=== PATIENT | female | born 1965 | race Caucasian/White ===

== ENCOUNTER 2017-03-15 18:13 | Emergency (ER) | payer MEDICARE, OTHER ==
[~2017-03-15] VITALS: Ht 162.6 cm; Wt 104.3 kg
[~2017-03-15 18:13] MED LIST: CYCL10TA2 PO; HYDR-971 PO; LEVO750T31 PO; METR500T PO; ONDA4TAB10 PO; PRED20TA PO
[2017-03-15] MEDS ORDERED: IV NORMAL SALINE 1000ML BAG 1,000 ML IV SCH (18:43)
[2017-03-15] MEDS ORDERED: ONDANSETRON PF 4 MG/2 ML VIAL. IV ONE (18:45)
[2017-03-15 18:56] LABS: BILIRUBIN,URINE NEGATIVE (NEG); GLUCOSE,URINE NEGATIVE (NEG); NITRITE,URINE NEGATIVE (NEG); PH,URINE 6.5; PROTEIN,URINE NEGATIVE (NEG-TRACE); UROBILINOGEN,URINE 0.2 mg/dL (0.2 mg/dL)
[2017-03-15] MEDS ORDERED: CONTRAST GIVEN MC PRN (19:00)
[2017-03-15] MEDS ORDERED: IOHEXOL 240 MG/ML 50ML VIAL. PO ONE (19:00)
[2017-03-15] MEDS ORDERED: IOHEXOL 300 MG/ML 75 ML VIAL IV ONE (19:00)
[2017-03-15 19:16] LABS: BACTERIA,URINE 0 /HPF (0-FEW); RBC,URINE 0 /HPF (0-2); SQUAMOUS EPITHELIAL CELL,UR MOD /LPF; WBC,URINE 0 /HPF (0-4)
[2017-03-15] MEDS: fentaNYL PF VIAL 100 MCG/2 ML VIAL IV PRN ×2 (19:30→19:55)
[2017-03-15 19:35] LABS: BASO # 0.1 x10^3/uL (0.0-0.2); BASO % 1 % (0-3); EOS % 3 % (0-3); HEMATOCRIT 40.3 % (36.0-47.0); HEMOGLOBIN 13.8 g/dL (12.0-15.5); LYMPH # 4.6 x10^3/uL (1.0-4.8); LYMPH % 46 % (24-48); MEAN CORPUSCULAR HEMOGLOBIN 30 pg (25-35); MEAN CORPUSCULAR HGB CONC 34 g/dL (31-37); MEAN CORPUSCULAR VOLUME 87 fL (79-100); MONO % 6 % (0-9); NEUT % 45 % (31-73); PLATELET COUNT 294 x10^3/uL (140-400); RED BLOOD COUNT 4.64 x10^6/uL (3.50-5.40); RED CELL DISTRIBUTION WIDTH 14.3 % (11.5-14.5); WHITE BLOOD COUNT 10.1 x10^3/uL (4.0-11.0)
[2017-03-15 19:42] LABS: INR 1.3 (0.8-1.1); PROTHROMBIN TIME PATIENT 15.1 SEC (11.7-14.0)
[2017-03-15 19:45] LABS: CALCIUM 8.7 mg/dL (8.5-10.1); CREATININE 0.8 mg/dL (0.6-1.0); GFR 75.9; POTASSIUM 3.8 mmol/L (3.5-5.1)
[2017-03-15 19:50] LABS: ALBUMIN 3.3 g/dL (3.4-5.0); ALBUMIN/GLOBULIN RATIO 0.9 (1.0-1.7); TOTAL BILIRUBIN 0.2 mg/dL (0.2-1.0)
[2017-03-15 21:00] VITALS: BP 127/70
--- NOTE | 2017-03-15 21:05 | RAD ---
EXAM: Abdomen and pelvis CT with intravenous contrast. HISTORY: Right lower quadrant pain. TECHNIQUE: Computed tomographic images of the abdomen and pelvis were obtained following the administration of 75 cc Omnipaque 300 intravenous contrast. Multiplanar reformatting was performed. *One or more of the following individualized dose reduction techniques were utilized for this examination: 1. Automated exposure control. 2. Adjustment of the mA and/or kV according to patient size. 3. Use of iterative reconstruction technique. COMPARISON: None. FINDINGS: Evaluation of the lower thorax demonstrates posterior dependent atelectasis. There is no infiltrate or effusion. There is mild pneumobilia likely due to prior sphincterotomy surgery. No focal hepatic lesion is seen. The gallbladder is absent. The pancreas, spleen, adrenal glands and kidneys are unremarkable. There is no appendicitis. There is no abnormal bowel wall thickening or dilatation. There is distal colonic diverticulosis. The bladder is unremarkable. The uterus is surgically absent. No pathologically enlarged lymph node is seen. There is no suspicious osseous lesion. IMPRESSION: 1. Colonic diverticulosis. 2. Pneumobilia. 3. No acute abdominal or pelvic finding. Electronically signed by: Yasmin Leon MD (03/15/2017 9:02 PM)
[2017-03-15] MEDS ORDERED: PROM25TA10 PO (21:32)
--- NOTE | 2017-03-15 21:32 | PHYS DOC ---
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 The pain began 2 days ago, , it was a little better yesterday, Friday, and it was worse today. She had some nausea but she cannot vomit because she's had a fundoplication in the past. No diarrhea or bloody stools. The pain was generalized but now is somewhat worse in the right lower quadrant. 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 It sounds like they ended up doing a transesophageal echo and at that time they started her on warfarin which she is still on. She really cannot Remember if this pain is like that pain that she had 4 years ago or not. Patient also states she had a "blockage" of her bowels in the past, she was admitted for 24-48 hours and it got better, she did not require surgery for that. Note that she was seen here last fall for abdominal pain and it was left lower quadrant, was treated empirically for possible diverticulitis. sHe doesn't remember whether this pain is like that or not. Surgical history. Hysterectomy and she believes they took her left ovary and left or right ovary. Prior to that, BTL. Cholecystectomy, had a retained gallstone and sounds like she had an ERCP after that. She denies having had appendectomy. PCP is at family [facility] Review of Systems Review of Systems Constitutional: Denies fever or chills [] Eyes: Denies change in visual acuity, redness, or eye pain [] HENT: Denies nasal congestion or sore throat [] Respiratory: Denies cough or shortness of breath [] Cardiovascular: Denies chest pain GI: As in history of present illness : Denies dysuria or hematuria [] Musculoskeletal: Denies back pain or joint pain [] Integument: Denies rash or skin lesions [] Neurologic: Denies headache, focal weakness or sensory changes [] Current Medications Current Medications Current Medications Medications (Trade) Dose Ordered Sig/Radha Start Time Stop Time Status Last Admin Dose Admin Fentanyl Citrate (Fentanyl 2ml Vial) 50 mcg PRN Q15MIN PRN 03/15/17 18:45 03/16/17 18:44 03/15/17 19:55 50 MCG Info (Do NOT chart on this entry -- for MONITORING) 1 each PRN DAILY PRN 03/15/17 19:00 03/17/17 18:59 Iohexol (Omnipaque 240 Mg/ml) 30 ml 1X ONCE 03/15/17 19:00 03/15/17 19:01 DC 03/15/17 19:00 30 ML Iohexol (Omnipaque 300 Mg/ml) 75 ml 1X ONCE 03/15/17 19:00 03/15/17 19:01 DC 03/15/17 20:49 75 ML Ondansetron HCl (Zofran) 4 mg 1X ONCE 03/15/17 18:45 03/15/17 18:51 DC 03/15/17 19:28 4 MG Sodium Chloride 1,000 ml @ 1,000 mls/hr Q1H 03/15/17 18:43 03/15/17 19:42 DC 03/15/17 19:22 1,000 MLS/HR Allergies Allergies Allergies Coded Allergies Type Severity Reaction Last Updated Verified No Known Drug Allergies 05/29/15 No Physical Exam Physical Exam Constitutional: Well developed, well nourished, no acute distress, non-toxic appearance. Ambulatory, appears uncomfortable but nontoxic HENT: Normocephalic, atraumatic, bilateral external ears normal, nose normal. [ ] Eyes: conjunctiva normal, no discharge. [] Neck: Normal range of motion, no stridor. [] Cardiovascular:Heart rate regular rhythm, no murmur [] Lungs & Thorax: Bilateral breath sounds clear to auscultation [] Abdomen: Bowel sounds normal, soft, no masses, no pulsatile masses. Abdomen mildly tender to palpation throughout, slightly more tender in the right lower quadrant, still no significant tenderness, no rebound or guarding. Skin: Warm, dry, no erythema, no rash. [] Extremities: No tenderness, no cyanosis, no clubbing, ROM intact, no edema. [] Neurologic: Alert and oriented X 3, normal motor function, normal sensory function, no focal deficits noted. [] Current Patient Data Vital Signs Vital Signs Date Time Temp Pulse Resp B/P (MAP) Pulse Ox O2 Delivery O2 Flow Rate FiO2 03/15/17 20:00 72 18 111/68 (82) 96 Room Air 03/15/17 18:30 98.0 98.0 Lab Values Laboratory Tests Test 03/15/17 18:00 03/15/17 19:20 Urine Collection Type Unknown Urine Color Yellow Urine Clarity Clear Urine pH 6.5 Urine Specific [place] 1.025 Urine Protein Negative mg/dL (NEG-TRACE) Urine Glucose (UA) Negative mg/dL (NEG) Urine Ketones (Stick) Negative mg/dL (NEG) Urine Blood Negative (NEG) Urine Nitrite Negative (NEG) Urine Bilirubin Negative (NEG) Urine Urobilinogen Dipstick 0.2 mg/dL (0.2 mg/dL) Urine Leukocyte Esterase Negative (NEG) Urine RBC 0 /HPF (0-2) Urine WBC 0 /HPF (0-4) Urine Squamous Epithelial Cells Mod /LPF Urine Bacteria 0 /HPF (0-FEW) Urine Mucus Marked /LPF White Blood Count 10.1 x10^3/uL (4.0-11.0) Red Blood Count 4.64 x10^6/uL (3.50-5.40) Hemoglobin 13.8 g/dL (12.0-15.5) Hematocrit 40.3 % (36.0-47.0) Mean Corpuscular Volume 87 fL (79-100) Mean Corpuscular Hemoglobin 30 pg (25-35) Mean Corpuscular Hemoglobin Concent 34 g/dL (31-37) Red Cell Distribution Width 14.3 % (11.5-14.5) Platelet Count 294 x10^3/uL (140-400) Neutrophils (%) (Auto) 45 % (31-73) Lymphocytes (%) (Auto) 46 % (24-48) Monocytes (%) (Auto) 6 % (0-9) Eosinophils (%) (Auto) 3 % (0-3) Basophils (%) (Auto) 1 % (0-3) Neutrophils # (Auto) 4.6 x10^3uL (1.8-7.7) Lymphocytes # (Auto) 4.6 x10^3/uL (1.0-4.8) Monocytes # (Auto) 0.6 x10^3/uL (0.0-1.1) Eosinophils # (Auto) 0.3 x10^3/uL (0.0-0.7) Basophils # (Auto) 0.1 x10^3/uL (0.0-0.2) Prothrombin Time 15.1 SEC (11.7-14.0) H Prothrombin Time INR 1.3 (0.8-1.1) H PTT 30 SEC (24-38) Sodium Level 147 mmol/L (136-145) H Potassium Level 3.8 mmol/L (3.5-5.1) Chloride Level 109 mmol/L (98-107) H Carbon Dioxide Level 29 mmol/L (21-32) Anion Gap 9 (6-14) Blood Urea Nitrogen 15 mg/dL (7-20) Creatinine 0.8 mg/dL (0.6-1.0) Estimated GFR (Cockcroft-Gault) 75.9 BUN/Creatinine Ratio 19 (6-20) Glucose Level 115 mg/dL (70-99) H Calcium Level 8.7 mg/dL (8.5-10.1) Total Bilirubin 0.2 mg/dL (0.2-1.0) Aspartate Amino Transferase (AST) 14 U/L (15-37) L Alanine Aminotransferase (ALT) 21 U/L (14-59) Alkaline Phosphatase 97 U/L (46-116) Total Protein 7.0 g/dL (6.4-8.2) Albumin 3.3 g/dL (3.4-5.0) L Albumin/Globulin Ratio 0.9 (1.0-1.7) L Lipase 228 U/L (73-393) Laboratory Tests 03/15/17 19:20 Laboratory Tests 03/15/17 19:20 EKG EKG [] Radiology/Procedures Radiology/Procedures CT scan of the abdomen and pelvis read by the radiologist. No appendicitis. Diverticulosis but no diverticulitis. No acute abdominal or pelvic findings. [] Course & Med Decision Making Course & Med Decision Making Pertinent Labs and Imaging studies reviewed. (See chart for details) 51-year-old female presents with abdominal pain for now 3 days. I discussed with the patient that we will treat her pain and nausea and get some labs and CT scan and she is agreeable to that plan. Labs unremarkable, CT scan unremarkable. INR is 1.3, subtherapeutic. I discussed this with the patient and she recalls that she forgot her dose of warfarin last night. She has a plan with her primary care physician that she will follow for a subtherapeutic INR. 2119 after results are back, I revisited the patient. She is alert, no acute distress, chatting on her cell phone. The nurses state she has been talking on her phone for quite some time now in no acute distress. Discussed results, see instructions for plan. [] Dragon Disclaimer Dragon Disclaimer This electronic medical record was generated, in whole or in part, using a voice recognition dictation system. Departure Departure Impression: Primary Impression: Abdominal pain Disposition: HOME, SELF-CARE Condition: STABLE Referrals: UNKNOWN PCP NAME (PCP) Patient Instructions: Abdominal Pain (Nonspecific) Additional Instructions: As we discussed, for 1-2 days, eat and drink very small amounts of bland foods and clear liquids. No fast food, nothing spicy or greasy. If worse, return to emergency. Check with your primary care doctor about your INR, 1.3. Scripts Promethazine Hcl (PROMETHAZINE HCL) 25 Mg Tablet 1 TAB PO PRN Q6HRS, #20 TAB Prov: MARLEN FERREIRA MD 03/15/17 MARLEN FERREIRA MD March 15, 2017 21:32
== END 2017-03-15 21:35 | disposition home or self-care (01) ==
LOC: ER 18:19
DX: R10.31 Right lower quadrant pain (principal); R11.0 Nausea; E78.00 Pure hypercholesterolemia, unspecified; Z90.710 Acquired absence of both cervix and uterus; Z90.49 Acquired absence of other specified parts of digestive tract; Z98.890 Other specified postprocedural states
CPT/HCPCS: 36415; 74177; 80053; 81001; 83690; 85027; 85610; 85730; 96361; 96374; 96375; 99285; J2405; J3010; J7030; Q9966; Q9967

== ENCOUNTER 2017-04-26 23:31 | Emergency (ER) | payer MEDICARE, OTHER ==
[~2017-04-26] VITALS: Ht 162.6 cm; Wt 106.6 kg
[~2017-04-26 23:31] MED LIST changes: +PROM25TA10 PO
[2017-04-27 01:03] LABS: BASO # 0.1 x10^3/uL (0.0-0.2); BASO % 1 % (0-3); EOS % 3 % (0-3); HEMATOCRIT 38.9 % (36.0-47.0); LYMPH # 4.6 x10^3/uL (1.0-4.8); LYMPH % 45 % (24-48); MEAN CORPUSCULAR HEMOGLOBIN 30 pg (25-35); MEAN CORPUSCULAR HGB CONC 33 g/dL (31-37); MEAN CORPUSCULAR VOLUME 89 fL (79-100); MONO % 6 % (0-9); NEUT % 46 % (31-73); PLATELET COUNT 256 x10^3/uL (140-400); RED BLOOD COUNT 4.35 x10^6/uL (3.50-5.40); RED CELL DISTRIBUTION WIDTH 13.6 % (11.5-14.5); WHITE BLOOD COUNT 10.2 x10^3/uL (4.0-11.0)
[2017-04-27 01:05] LABS: BILIRUBIN,URINE NEGATIVE (NEG); GLUCOSE,URINE NEGATIVE (NEG); NITRITE,URINE NEGATIVE (NEG); PH,URINE 5.5; PROTEIN,URINE NEGATIVE (NEG-TRACE); UROBILINOGEN,URINE 0.2 mg/dL (0.2 mg/dL)
--- NOTE | 2017-04-27 01:12 | PHYS DOC ---
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 Patient states that the pain has been present along her right side during the past 3 days. Patient states that her pain is sharp and rates it 10 out of 10 currently. 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 Patient states that she is currently on Coumadin therapy and her INR has been subtherapeutic at last check. Patient denies any fevers. Patient has not taken any medications to help with her symptoms at this time. Patient denies any chest pain, shortness of breath, or urinary symptoms. The pain remains in the right lower quadrant and does not radiate. Review of Systems Review of Systems Constitutional: Denies fever or chills [] Eyes: Denies change in visual acuity, redness, or eye pain [] HENT: Denies nasal congestion or sore throat [] Respiratory: Denies cough or shortness of breath [] Cardiovascular: Denies chest pain or edema [] GI: Abdominal pain, nausea, vomiting, diarrhea, denies bloody stools [] : Denies dysuria or hematuria [] Musculoskeletal: Denies back pain or joint pain [] Integument: Denies rash or skin lesions [] Neurologic: Denies headache, focal weakness or sensory changes [] Current Medications Current Medications Current Medications Medications (Trade) Dose Ordered Sig/Radha Start Time Stop Time Status Last Admin Dose Admin Fentanyl Citrate (Fentanyl 2ml Vial) 50 mcg PRN Q15MIN PRN 04/27/17 01:15 04/27/17 03:38 DC 04/27/17 02:00 50 MCG Info (Do NOT chart on this entry -- for MONITORING) 1 each PRN DAILY PRN 04/27/17 01:45 04/27/17 03:38 DC Iohexol (Omnipaque 350 Mg/ml) 90 ml 1X ONCE 04/27/17 02:00 04/27/17 02:01 DC 04/27/17 02:07 75 ML Ondansetron HCl (Zofran) 4 mg 1X ONCE 04/27/17 01:30 04/27/17 01:31 DC 04/27/17 01:34 4 MG Sodium Chloride 1,000 ml @ 1,000 mls/hr Q1H 04/27/17 01:30 04/27/17 02:29 DC 04/27/17 01:34 1,000 MLS/HR Allergies Allergies Allergies Coded Allergies Type Severity Reaction Last Updated Verified No Known Drug Allergies 05/29/15 No Physical Exam Physical Exam Constitutional: Alert, afebrile, appears in moderate discomfort. [] HENT: Normocephalic, atraumatic, bilateral external ears normal, oropharynx moist, no oral exudates, nose normal. [] Eyes: PERRLA, EOMI, conjunctiva normal, no discharge. [] Neck: Normal range of motion, no tenderness, supple, no stridor. [] Cardiovascular:Heart rate regular rhythm, no murmur [] Lungs & Thorax: Bilateral breath sounds clear to auscultation [] Abdomen: Bowel sounds normal, soft, mild tenderness in the right lower quadrant , no guarding or rebound tenderness, no masses, no pulsatile masses. [] Skin: Warm, dry, no erythema, no rash. [] Back: No tenderness, no CVA tenderness. [] Extremities: No tenderness, no cyanosis, no clubbing, ROM intact, no edema. [] Neurologic: Alert and oriented X 3, normal motor function, normal sensory function, no focal deficits noted. [] Current Patient Data Vital Signs Vital Signs Date Time Temp Pulse Resp B/P (MAP) Pulse Ox O2 Delivery O2 Flow Rate FiO2 04/27/17 03:30 66 119/62 (81) 96 Room Air 04/27/17 00:00 98.8 18 98.8 Lab Values Laboratory Tests Test 04/27/17 00:01 04/27/17 00:35 Urine Collection Type Unknown Urine Color Yellow Urine Clarity Clear Urine pH 5.5 Urine Specific [place] >=1.030 Urine Protein Negative mg/dL (NEG-TRACE) Urine Glucose (UA) Negative mg/dL (NEG) Urine Ketones (Stick) Negative mg/dL (NEG) Urine Blood Negative (NEG) Urine Nitrite Negative (NEG) Urine Bilirubin Negative (NEG) Urine Urobilinogen Dipstick 0.2 mg/dL (0.2 mg/dL) Urine Leukocyte Esterase Negative (NEG) Urine RBC Occ /HPF (0-2) Urine WBC 5-10 /HPF (0-4) Urine Squamous Epithelial Cells Mod /LPF Urine Bacteria Many /HPF (0-FEW) Urine Mucus Mod /LPF White Blood Count 10.2 x10^3/uL (4.0-11.0) Red Blood Count 4.35 x10^6/uL (3.50-5.40) Hemoglobin 13.0 g/dL (12.0-15.5) Hematocrit 38.9 % (36.0-47.0) Mean Corpuscular Volume 89 fL (79-100) Mean Corpuscular Hemoglobin 30 pg (25-35) Mean Corpuscular Hemoglobin Concent 33 g/dL (31-37) Red Cell Distribution Width 13.6 % (11.5-14.5) Platelet Count 256 x10^3/uL (140-400) Neutrophils (%) (Auto) 46 % (31-73) Lymphocytes (%) (Auto) 45 % (24-48) Monocytes (%) (Auto) 6 % (0-9) Eosinophils (%) (Auto) 3 % (0-3) Basophils (%) (Auto) 1 % (0-3) Neutrophils # (Auto) 4.6 x10^3uL (1.8-7.7) Lymphocytes # (Auto) 4.6 x10^3/uL (1.0-4.8) Monocytes # (Auto) 0.7 x10^3/uL (0.0-1.1) Eosinophils # (Auto) 0.3 x10^3/uL (0.0-0.7) Basophils # (Auto) 0.1 x10^3/uL (0.0-0.2) Prothrombin Time 17.5 SEC (11.7-14.0) H Prothrombin Time INR 1.5 (0.8-1.1) H PTT 36 SEC (24-38) Sodium Level 147 mmol/L (136-145) H Potassium Level 3.8 mmol/L (3.5-5.1) Chloride Level 111 mmol/L (98-107) H Carbon Dioxide Level 28 mmol/L (21-32) Anion Gap 8 (6-14) Blood Urea Nitrogen 18 mg/dL (7-20) Creatinine 1.2 mg/dL (0.6-1.0) H Estimated GFR (Cockcroft-Gault) 47.6 Glucose Level 114 mg/dL (70-99) H Calcium Level 8.3 mg/dL (8.5-10.1) L Total Bilirubin 0.1 mg/dL (0.2-1.0) L Direct Bilirubin < 0.1 mg/dL (0.0-0.2) Aspartate Amino Transferase (AST) 14 U/L (15-37) L Alanine Aminotransferase (ALT) 22 U/L (14-59) Alkaline Phosphatase 87 U/L (46-116) Troponin I Quantitative < 0.017 ng/mL (0.000-0.055) Total Protein 6.6 g/dL (6.4-8.2) Albumin 3.4 g/dL (3.4-5.0) Lipase 221 U/L (73-393) Laboratory Tests 04/27/17 00:35 Laboratory Tests 04/27/17 00:35 EKG EKG Not performed [] Radiology/Procedures Radiology/Procedures [facility] [address] [place] [address] IMAGING REPORT Signed PATIENT: LU NO ACCOUNT: [id number] : 1965 LOCATION: ER AGE: 51 SEX: F EXAM STATUS: REG ER ORD. PHYSICIAN: HEATHER RAGSDALE MD REASON: abdominal pain, reported history of aortic thrombosis PROCEDURE: CT ANGIO CHEST ABD PELVIS INDICATION: rlq pain; hx aortic thrombosis COMPARISON: March 15, 2017 TECHNIQUE: Axial CT images were obtained through the chest, abdomen and pelvis with intravenous contrast. Three-dimensional images process per angiogram protocol. One or more of the following individualized dose reduction techniques were utilized for this examination: 1. Automated exposure control; 2. Adjustment of the mA and/or kV according to patient size; 3. Use of iterative reconstruction technique. FINDINGS: Chest: Mild regions of lucency within the lung parenchyma. Could be from small foci of air trapping. No evidence of pneumothorax. No definite focal airspace consolidation. Coronary artery calcific atherosclerosis. Small hiatal hernia. Portions of the ascending aorta are obscured by motion but no definite aneurysm or dissection seen. ABDOMEN: Calcific atherosclerosis is identified without definite aneurysm or dissection of abdominal aorta. No intrahepatic bile duct dilation. Postcholecystectomy with mild pneumobilia. No peripancreatic edema. Subcentimeter low-attenuation splenic lesion suspected. No hydronephrosis. Bladder is largely decompressed. Colonic diverticulosis. The appendix does not appear grossly inflamed. Bladder partially distended. No dilated loops of bowel to suggest obstruction. Degenerative changes spine. IMPRESSION: 1. No evidence of aortic dissection or thrombosis. There is calcific atherosclerosis. 2. No evidence of bowel obstruction or appendicitis. 3. Small hiatal hernia. 4. Postcholecystectomy changes with mild pneumobilia. Electronically signed by: Tamara No MD (04/27/2017 2:51 AM) [facility] DICTATED and SIGNED BY: TAMARA NO MD DATE: 04/27/17 0227 CC: HEATHER RAGSDALE MD; UNKNOWN PCP NAME ~ [] Course & Med Decision Making Course & Med Decision Making Pertinent Labs and Imaging studies reviewed. (See chart for details) The patient's CT scan shows no evidence of acute surgical process nor evidence of acute thrombosis or dissection in the aorta. The patient was treated with IV fluids and IV pain medicine with improvement in symptoms. The patient was discharged with [place] and Zofran and advised follow-up in 2-3 days a primary doctor. Advised return emergency department for any worsening symptoms. Patient voiced understanding and in agreement with treatment plan. Dragon Disclaimer Dragon Disclaimer This electronic medical record was generated, in whole or in part, using a voice recognition dictation system. Departure Departure Impression: Primary Impression: Abdominal pain Additional Impressions: Nausea and vomiting Diarrhea Disposition: 01 HOME, SELF-CARE Condition: IMPROVED Referrals: UNKNOWN PCP NAME (PCP) Patient Instructions: Abdominal Pain (Nonspecific), Diarrhea, Nausea and Vomiting Additional Instructions: Follow-up he primary doctor in the next 2 days for reevaluation. Return to emergency department for any worsening symptoms. Scripts Ondansetron (ZOFRAN ODT) 4 Mg Tab.rapdis 1 TAB SL Q8HRS Y for NAUSEA/VOMITING, #15 TAB Prov: HEATHER RAGSDALE MD 04/27/17 Hydrocodone/Apap 5-325 (NORCO 5-325 TABLET) 1 Each Tablet 1-2 TAB PO Q4-6HRS Y for PAIN, #20 TAB Prov: HEATHER RAGSDALE MD 04/27/17 Problem Qualifiers Primary Impression: Abdominal pain Abdominal location: lower abdomen, unspecified Qualified Codes: R10.30 - Lower abdominal pain, unspecified Additional Impressions: Nausea and vomiting Vomiting type: unspecified Vomiting Intractability: non-intractable Qualified Codes: R11.2 - Nausea with vomiting, unspecified Diarrhea Diarrhea type: presumed infectious Qualified Codes: A09 - Infectious gastroenteritis and colitis, unspecified HEATHER RAGSDALE MD Apr 27, 2017 01:12
[2017-04-27 01:17] LABS: CALCIUM 8.3 mg/dL (8.5-10.1); CREATININE 1.2 mg/dL (0.6-1.0); GFR 47.6; POTASSIUM 3.8 mmol/L (3.5-5.1)
[2017-04-27 01:22] LABS: BACTERIA,URINE MANY /HPF (0-FEW); RBC,URINE OCC /HPF (0-2); SQUAMOUS EPITHELIAL CELL,UR MOD /LPF
[2017-04-27] MEDS ORDERED: IV NORMAL SALINE 1000ML BAG 1,000 ML IV SCH (01:30)
[2017-04-27] MEDS ORDERED: ONDANSETRON PF 4 MG/2 ML VIAL. IV ONE (01:30)
[2017-04-27] MEDS: fentaNYL PF VIAL 100 MCG/2 ML VIAL IV PRN ×2 (01:33→02:00)
[2017-04-27 01:36] LABS: INR 1.5 (0.8-1.1); PROTHROMBIN TIME PATIENT 17.5 SEC (11.7-14.0)
[2017-04-27 01:39] LABS: ALBUMIN 3.4 g/dL (3.4-5.0); ALK PHOS 87 U/L (46-116); ALT (SGPT) 22 U/L (14-59); AST (SGOT) 14 U/L (15-37); DIRECT BILIRUBIN < 0.1 mg/dL (0.0-0.2); TOTAL BILIRUBIN 0.1 mg/dL (0.2-1.0); TOTAL PROTEIN 6.6 g/dL (6.4-8.2)
[2017-04-27] MEDS ORDERED: CONTRAST GIVEN MC PRN (01:45)
[2017-04-27] MEDS ORDERED: IOHEXOL 350 MG/ML 100 ML VIAL. IV ONE (02:00)
--- NOTE | 2017-04-27 02:54 | RAD ---
INDICATION: rlq pain; hx aortic thrombosis COMPARISON: March 15, 2017 TECHNIQUE: Axial CT images were obtained through the chest, abdomen and pelvis with intravenous contrast. Three-dimensional images process per angiogram protocol. One or more of the following individualized dose reduction techniques were utilized for this examination: 1. Automated exposure control; 2. Adjustment of the mA and/or kV according to patient size; 3. Use of iterative reconstruction technique. FINDINGS: Chest: Mild regions of lucency within the lung parenchyma. Could be from small foci of air trapping. No evidence of pneumothorax. No definite focal airspace consolidation. Coronary artery calcific atherosclerosis. Small hiatal hernia. Portions of the ascending aorta are obscured by motion but no definite aneurysm or dissection seen. ABDOMEN: Calcific atherosclerosis is identified without definite aneurysm or dissection of abdominal aorta. No intrahepatic bile duct dilation. Postcholecystectomy with mild pneumobilia. No peripancreatic edema. Subcentimeter low-attenuation splenic lesion suspected. No hydronephrosis. Bladder is largely decompressed. Colonic diverticulosis. The appendix does not appear grossly inflamed. Bladder partially distended. No dilated loops of bowel to suggest obstruction. Degenerative changes spine. IMPRESSION: 1. No evidence of aortic dissection or thrombosis. There is calcific atherosclerosis. 2. No evidence of bowel obstruction or appendicitis. 3. Small hiatal hernia. 4. Postcholecystectomy changes with mild pneumobilia. Electronically signed by: Froilan Rooney MD (04/27/2017 2:51 AM) [facility]
[2017-04-27] MEDS ORDERED: HYDR-971 PO (03:25)
[2017-04-27] MEDS ORDERED: ONDA4TAB10 SL (03:25)
[2017-04-27 03:30] VITALS: BP 119/62
== END 2017-04-27 03:37 | disposition home or self-care (01) ==
LOC: ER 23:31
DX: R10.31 Right lower quadrant pain (principal); R11.2 Nausea with vomiting, unspecified; R19.7 Diarrhea, unspecified; E78.00 Pure hypercholesterolemia, unspecified; K21.9 Gastro-esophageal reflux disease without esophagitis; F32.9 Major depressive disorder, single episode, unspecified; F41.9 Anxiety disorder, unspecified; Z90.49 Acquired absence of other specified parts of digestive tract; Z90.710 Acquired absence of both cervix and uterus; Z79.01 Long term (current) use of anticoagulants; I10 Essential (primary) hypertension
CPT/HCPCS: 36415; 71275; 74174; 80048; 80076; 81001; 83690; 84484; 85027; 85610; 85730; 87086; 96361; 96374; 96375; 99285; J2405; J3010; J7030; Q9967

== ENCOUNTER 2017-07-10 14:05 | Emergency (ER) | payer MEDICARE, OTHER ==
[~2017-07-10] VITALS: Ht 162.6 cm; Wt 106.6 kg
[~2017-07-10 14:05] MED LIST changes: +ONDA4TAB10 SL
--- NOTE | 2017-07-10 14:47 | RAD ---
CT of the head without contrast, 07/10/2017: History: Severe headache Comparison is made to a study from 09/15/2016. The ventricles are within normal limits in size. There is no shift of the midline structures. There is no evidence of acute intracranial hemorrhage or mass effect. IMPRESSION: No acute intracranial abnormality is detected. PQRS Compliance Statement: One or more of the following individualized dose reduction techniques were utilized for this examination: 1. Automated exposure control 2. Adjustment of the mA and/or kV according to patient size 3. Use of iterative reconstruction technique
--- NOTE | 2017-07-10 15:20 | PHYS DOC ---
Past Medical History Past Medical History: Anxiety, Depression, High Cholesterol Additional Past Medical Histor: "BLOOD CLOTS" Past Surgical History: Cholecystectomy, Hysterectomy, Other Additional Past Surgical Histo: ACID REFLUX SURGERY Past Surgical History The patient reports hysterectomy, fundoplication, bilateral tubal ligation, and cholecystectomy Alcohol Use: Occasionally Drug Use: None Adult General Chief Complaint Chief Complaint: HEADACHE HPI HPI Patient is a 51 year old female who presents emergency Department with a chief complaint of severe headache. The patient she has a history of migraine headaches. Patient presented to the first one this year for her. The patient wasbeen ongoing for 6 days. The patient reports that she's been having poor eating and poor sleep secondary to raising her autistic grandchild who is nonverbal and because her son was in a rollover MVA is on life support at [facility]. The patient reports she's been unable to get her INR done as she normally would. The patient is uncertain when her INR is at this time. 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 The patient reports right parietal and right temporal headache feels like a stabbing type pain. Patient reports typically her headaches are a throbbing type pain. She denies any neck tenderness or pain with neck flexion. [] Review of Systems Review of Systems Constitutional: Denies fever or chills [] Eyes: Denies change in visual acuity, redness, or eye pain [] HENT: Denies nasal congestion or sore throat [] Respiratory: Denies cough or shortness of breath [] Cardiovascular: No additional information not addressed in HPI [] GI: Denies abdominal pain, omiting, bloody stools or diarrhea [] : Denies dysuria or hematuria [] Musculoskeletal: Denies back pain or joint pain [] Integument: Denies rash or skin lesions [] Neurologic: Denies focal weakness or sensory changes [] Endocrine: Denies polyuria or polydipsia The patient complains of nausea and headache at this time.[] Current Medications Current Medications Current Medications Medications (Trade) Dose Ordered Sig/Radha Start Time Stop Time Status Last Admin Dose Admin Diphenhydramine HCl (Benadryl) 25 mg 1X ONCE 07/10/17 15:45 07/10/17 16:44 DC 9/21/17 16:10 25 MG Prochlorperazine Edisylate (Compazine) 10 mg 1X ONCE 07/10/17 15:45 07/10/17 16:44 DC 07/10/17 16:10 10 MG Patient reports that her home meds include Tylenol and Coumadin and diazepam Allergies Allergies Allergies Coded Allergies Type Severity Reaction Last Updated Verified No Known Drug Allergies 05/29/15 No Physical Exam Physical Exam Constitutional: Well developed, well nourished, no acute distress, non-toxic appearance. [] HENT: Normocephalic, atraumatic, bilateral external ears normal, oropharynx moist, no oral exudates, nose normal. [] Eyes: PERRLA, EOMI, conjunctiva normal, no discharge. [] Neck: Normal range of motion, no tenderness, supple, no stridor, no meningismus. [] Cardiovascular:Heart rate regular rhythm, no murmur [] Lungs & Thorax: Bilateral breath sounds clear to auscultation [] Abdomen: Bowel sounds normal, soft, no tenderness, no masses, no pulsatile masses. [] Skin: Warm, dry, no erythema, no rash. [] Back: No tenderness, no CVA tenderness. [] Extremities: No tenderness, no cyanosis, no clubbing, ROM intact, no edema. [] Neurologic: Alert and oriented X 3, normal motor function, normal sensory function, no focal deficits noted. [] Psychologic: Affect normal, judgement normal, mood normal. [] Current Patient Data Vital Signs Vital Signs Date Time Temp Pulse Resp B/P (MAP) Pulse Ox O2 Delivery O2 Flow Rate FiO2 07/10/17 17:00 68 23 111/69 (83) 98 Room Air 07/10/17 14:56 98.0 98.0 Lab Values Laboratory Tests Test 07/10/17 15:30 07/10/17 15:55 POC Urine HCG, Qualitative Hcg negative (Negative) White Blood Count 9.8 x10^3/uL (4.0-11.0) Red Blood Count 4.43 x10^6/uL (3.50-5.40) Hemoglobin 13.2 g/dL (12.0-15.5) Hematocrit 39.9 % (36.0-47.0) Mean Corpuscular Volume 90 fL (79-100) Mean Corpuscular Hemoglobin 30 pg (25-35) Mean Corpuscular Hemoglobin Concent 33 g/dL (31-37) Red Cell Distribution Width 14.2 % (11.5-14.5) Platelet Count 262 x10^3/uL (140-400) Neutrophils (%) (Auto) 46 % (31-73) Lymphocytes (%) (Auto) 45 % (24-48) Monocytes (%) (Auto) 6 % (0-9) Eosinophils (%) (Auto) 3 % (0-3) Basophils (%) (Auto) 1 % (0-3) Neutrophils # (Auto) 4.5 x10^3uL (1.8-7.7) Lymphocytes # (Auto) 4.4 x10^3/uL (1.0-4.8) Monocytes # (Auto) 0.6 x10^3/uL (0.0-1.1) Eosinophils # (Auto) 0.3 x10^3/uL (0.0-0.7) Basophils # (Auto) 0.1 x10^3/uL (0.0-0.2) Prothrombin Time 17.5 SEC (11.7-14.0) H Prothrombin Time INR 1.5 (0.8-1.1) H PTT 35 SEC (24-38) Sodium Level 143 mmol/L (136-145) Potassium Level 3.9 mmol/L (3.5-5.1) Chloride Level 106 mmol/L (98-107) Carbon Dioxide Level 27 mmol/L (21-32) Anion Gap 10 (6-14) Blood Urea Nitrogen 12 mg/dL (7-20) Creatinine 0.8 mg/dL (0.6-1.0) Estimated GFR (Cockcroft-Gault) 75.9 BUN/Creatinine Ratio 15 (6-20) Glucose Level 91 mg/dL (70-99) Calcium Level 9.0 mg/dL (8.5-10.1) Total Bilirubin 0.2 mg/dL (0.2-1.0) Aspartate Amino Transferase (AST) 19 U/L (15-37) Alanine Aminotransferase (ALT) 25 U/L (14-59) Alkaline Phosphatase 96 U/L (46-116) Total Protein 7.3 g/dL (6.4-8.2) Albumin 3.4 g/dL (3.4-5.0) Albumin/Globulin Ratio 0.9 (1.0-1.7) L Laboratory Tests 07/10/17 15:55 Laboratory Tests 07/10/17 15:55 EKG EKG [] Radiology/Procedures Radiology/Procedures [] PATIENT: LU NO ACCOUNT: [id number] : 1965 LOCATION: ER AGE: 51 SEX: F EXAM STATUS: REG ER ORD. PHYSICIAN: GREG SHEA APRN REASON: headahce PROCEDURE: CT HEAD WO CONTRAST CT of the head without contrast, 07/10/2017: History: Severe headache Comparison is made to a study from 09/15/2016. The ventricles are within normal limits in size. There is no shift of the midline structures. There is no evidence of acute intracranial hemorrhage or mass effect. IMPRESSION: No acute intracranial abnormality is detected. PQRS Compliance Statement: One or more of the following individualized dose reduction techniques were utilized for this examination: 1. Automated exposure control 2. Adjustment of the mA and/or kV according to patient size 3. Use of iterative reconstruction technique DICTATED and SIGNED BY: SERENA LANDEROS MD DATE: 07/10/17 1443 CC: GREG SHEA APRN; NON,STAFF; UNKNOWN PCP NAME ~ Course & Med Decision Making Course & Med Decision Making Pertinent Labs and Imaging studies reviewed. (See chart for details) I rechecked the patient and at 5:46 PM. I had to arouse the patient from sleep. I asked the patient with her headache was improved. Patient states that her headache is resolved. The patient was eager to be discharged home so that she can get some rest. This patient need for close outpatient follow-up she was understanding and agree with the plan.[] Dragon Disclaimer Dragon Disclaimer This electronic medical record was generated, in whole or in part, using a voice recognition dictation system. Departure Departure Referrals: UNKNOWN PCP NAME (PCP) RADHA HRAO MD Jul 10, 2017 15:20
[2017-07-10] MEDS ORDERED: PROCHLORPERAZINE 10 MG/2 ML VIAL. IV ONE (15:45)
[2017-07-10] MEDS ORDERED: diphenhydrAMINE 50 MG/ML VIAL IVP ONE (15:45)
[2017-07-10 16:06] LABS: BASO # 0.1 x10^3/uL (0.0-0.2); BASO % 1 % (0-3); EOS % 3 % (0-3); HEMATOCRIT 39.9 % (36.0-47.0); HEMOGLOBIN 13.2 g/dL (12.0-15.5); LYMPH # 4.4 x10^3/uL (1.0-4.8); LYMPH % 45 % (24-48); MEAN CORPUSCULAR HEMOGLOBIN 30 pg (25-35); MEAN CORPUSCULAR HGB CONC 33 g/dL (31-37); MEAN CORPUSCULAR VOLUME 90 fL (79-100); MONO % 6 % (0-9); NEUT % 46 % (31-73); PLATELET COUNT 262 x10^3/uL (140-400); RED BLOOD COUNT 4.43 x10^6/uL (3.50-5.40); RED CELL DISTRIBUTION WIDTH 14.2 % (11.5-14.5); WHITE BLOOD COUNT 9.8 x10^3/uL (4.0-11.0)
[2017-07-10 16:15] LABS: INR 1.5 (0.8-1.1); PROTHROMBIN TIME PATIENT 17.5 SEC (11.7-14.0)
[2017-07-10 16:16] LABS: CREATININE 0.8 mg/dL (0.6-1.0); GFR 75.9; POTASSIUM 3.9 mmol/L (3.5-5.1)
[2017-07-10 16:22] LABS: ALBUMIN 3.4 g/dL (3.4-5.0); ALBUMIN/GLOBULIN RATIO 0.9 (1.0-1.7); TOTAL BILIRUBIN 0.2 mg/dL (0.2-1.0); TOTAL PROTEIN 7.3 g/dL (6.4-8.2)
[2017-07-10 18:00] VITALS: BP 123/68
== END 2017-07-10 18:25 | disposition home or self-care (01) ==
LOC: ER 14:05
DX: G43.909 Migraine, unspecified, not intractable, without status migrainosus (principal); F41.9 Anxiety disorder, unspecified; F32.9 Major depressive disorder, single episode, unspecified; E78.00 Pure hypercholesterolemia, unspecified
CPT/HCPCS: 36415; 70450; 80053; 81025; 85025; 85610; 85730; 96374; 96375; 99285; J0780; J1200

== ENCOUNTER 2017-09-02 12:02 | Inpatient (IN) | payer MEDICARE, OTHER ==
[~2017-09-02] VITALS: Ht 162.6 cm; Wt 105.3 kg
[2017-09-02] MEDS ORDERED: HYDROmorphone 2 MG/ML VIAL IV ONE ×2 (12:45→14:15)
[2017-09-02] MEDS ORDERED: IV NORMAL SALINE 1000ML BAG 1,000 ML IV ONE (12:45)
[2017-09-02] MEDS ORDERED: ONDANSETRON PF 4 MG/2 ML VIAL. IV ONE (12:45)
--- NOTE | 2017-09-02 12:49 | PHYS DOC ---
Past Medical History Past Medical History: Anxiety, Depression, High Cholesterol Additional Past Medical Histor: "BLOOD CLOTS" Past Surgical History: Cholecystectomy, Hysterectomy, Other Additional Past Surgical Histo: ACID REFLUX SURGERY Alcohol Use: Occasionally Drug Use: None Adult General Chief Complaint Chief Complaint: ABDOMINAL PAIN HPI HPI Patient is a 52 year old female who presents with one-day history of right- sided abdominal pain that intermittently crosses across her abdomen no nausea vomiting; reports diarrhea not bloody no melena; denies fever chills dysuria frequency or flank pain. Past abdominal surgery includes Felicity fundoplication, cholecystectomy and abdominal hysterectomy no appendectomy. 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 Denies atrial fibrillation or diabetes or coronary artery disease or COPD. Review of Systems Review of Systems Constitutional: Denies fever or chills [] Eyes: Denies change in visual acuity, redness, or eye pain [] HENT: Denies nasal congestion or sore throat [] Respiratory: Denies cough or shortness of breath [] Cardiovascular: No additional information not addressed in HPI [] GI: Denies abdominal pain, nausea, vomiting, bloody stools or diarrhea [] : Denies dysuria or hematuria [] Musculoskeletal: Denies back pain or joint pain [] Integument: Denies rash or skin lesions [] Neurologic: Denies headache, focal weakness or sensory changes [] Endocrine: Denies polyuria or polydipsia [] All other systems were reviewed and found to be within normal limits, except as documented in this note. Current Medications Current Medications Current Medications Medications (Trade) Dose Ordered Sig/Radha Start Time Stop Time Status Last Admin Dose Admin Hydromorphone HCl (Dilaudid) 1 mg 1X ONCE 09/02/17 14:15 09/02/17 14:16 DC 09/02/17 14:12 1 MG Info (Do NOT chart on this entry -- for MONITORING) 1 each PRN DAILY PRN 09/02/17 13:15 09/04/17 13:14 Iohexol (Omnipaque 300 Mg/ml) 75 ml 1X ONCE 09/02/17 13:00 09/02/17 13:01 DC 09/02/17 13:00 75 ML Ondansetron HCl (Zofran) 4 mg 1X ONCE 09/02/17 12:45 09/02/17 12:48 DC 09/02/17 13:21 4 MG Sodium Chloride 1,000 ml @ 1,000 mls/hr 1X ONCE 09/02/17 12:45 09/02/17 13:44 DC 09/02/17 13:20 1,000 MLS/HR Allergies Allergies Allergies Coded Allergies Type Severity Reaction Last Updated Verified No Known Drug Allergies 05/29/15 No Physical Exam Physical Exam Constitutional: Well developed, well nourished, no acute distress, non-toxic appearance. [] HENT: Normocephalic, atraumatic, bilateral external ears normal, oropharynx moist, no oral exudates, nose normal. [] Eyes: PERRLA, EOMI, conjunctiva normal, no discharge. [] Neck: Normal range of motion, no tenderness, supple, no stridor. [] Cardiovascular:Heart rate regular rhythm, no murmur [] Lungs & Thorax: Bilateral breath sounds clear to auscultation [] Abdomen: Bowel sounds normal, soft, minimal right sided tenderness, no masses, no pulsatile masses. [] Skin: Warm, dry, no erythema, no rash. [] Back: No tenderness, no CVA tenderness. [] Extremities: No tenderness, no cyanosis, no clubbing, ROM intact, no edema. [] Neurologic: Alert and oriented X 3, normal motor function, normal sensory function, no focal deficits noted. [] Psychologic: Affect normal, judgement normal, mood normal. [] Current Patient Data Vital Signs Vital Signs Date Time Temp Pulse Resp B/P (MAP) Pulse Ox O2 Delivery O2 Flow Rate FiO2 09/02/17 15:16 71 105/63 (77) 98 Room Air 09/02/17 12:31 98.2 18 98.2 Lab Values Laboratory Tests Test 09/02/17 12:15 09/02/17 13:30 Urine Collection Type Unknown Urine Color Yellow Urine Clarity Clear Urine pH 5.5 Urine Specific [place] 1.025 Urine Protein Negative mg/dL (NEG-TRACE) Urine Glucose (UA) Negative mg/dL (NEG) Urine Ketones (Stick) Negative mg/dL (NEG) Urine Blood Negative (NEG) Urine Nitrite Negative (NEG) Urine Bilirubin Negative (NEG) Urine Urobilinogen Dipstick 0.2 mg/dL (0.2 mg/dL) Urine Leukocyte Esterase Negative (NEG) Urine RBC 0 /HPF (0-2) Urine WBC Occ /HPF (0-4) Urine Squamous Epithelial Cells Mod /LPF Urine Bacteria Few /HPF (0-FEW) Urine Mucus Mod /LPF White Blood Count 11.2 x10^3/uL (4.0-11.0) H Red Blood Count 4.51 x10^6/uL (3.50-5.40) Hemoglobin 13.4 g/dL (12.0-15.5) Hematocrit 40.5 % (36.0-47.0) Mean Corpuscular Volume 90 fL (79-100) Mean Corpuscular Hemoglobin 30 pg (25-35) Mean Corpuscular Hemoglobin Concent 33 g/dL (31-37) Red Cell Distribution Width 13.8 % (11.5-14.5) Platelet Count 251 x10^3/uL (140-400) Neutrophils (%) (Auto) 57 % (31-73) Lymphocytes (%) (Auto) 35 % (24-48) Monocytes (%) (Auto) 6 % (0-9) Eosinophils (%) (Auto) 2 % (0-3) Basophils (%) (Auto) 1 % (0-3) Neutrophils # (Auto) 6.4 x10^3uL (1.8-7.7) Lymphocytes # (Auto) 3.9 x10^3/uL (1.0-4.8) Monocytes # (Auto) 0.6 x10^3/uL (0.0-1.1) Eosinophils # (Auto) 0.2 x10^3/uL (0.0-0.7) Basophils # (Auto) 0.1 x10^3/uL (0.0-0.2) Prothrombin Time 19.5 SEC (11.7-14.0) H Prothrombin Time INR 1.8 (0.8-1.1) H Sodium Level 141 mmol/L (136-145) Potassium Level 3.7 mmol/L (3.5-5.1) Chloride Level 107 mmol/L (98-107) Carbon Dioxide Level 26 mmol/L (21-32) Anion Gap 8 (6-14) Blood Urea Nitrogen 13 mg/dL (7-20) Creatinine 0.8 mg/dL (0.6-1.0) Estimated GFR (Cockcroft-Gault) 75.6 BUN/Creatinine Ratio 16 (6-20) Glucose Level 94 mg/dL (70-99) Calcium Level 8.7 mg/dL (8.5-10.1) Total Bilirubin 0.4 mg/dL (0.2-1.0) Aspartate Amino Transferase (AST) 13 U/L (15-37) L Alanine Aminotransferase (ALT) 18 U/L (14-59) Alkaline Phosphatase 90 U/L (46-116) Total Protein 6.9 g/dL (6.4-8.2) Albumin 3.1 g/dL (3.4-5.0) L Albumin/Globulin Ratio 0.8 (1.0-1.7) L Lipase 156 U/L (73-393) Laboratory Tests 09/02/17 13:30 Laboratory Tests 09/02/17 13:30 EKG EKG eKG Normal sinus rhythm rate of 73 no ischemia QTC 438 interpretation[] Radiology/Procedures Radiology/Procedures CT scan abdomen and pelvis[ enteritis plus inflammation of the small bowel of the mesentery and the radiologist reported that there was possible ischemia related findings the differential. Radiology report] Course & Med Decision Making Course & Med Decision Making Pertinent Labs and Imaging studies reviewed. (See chart for details) Fairly benign abdominal exam, plan to check labs treat symptoms and obtain CT scan abdomen and pelvis.[ Reexamination the patient still has abdominal pain. Discussed with specialist and discussed with Dr. Araujo general surgeon who also requests I consult GI and talked to the PA regarding that. I discussed the CT findings with both consultants. I suspicion for any bowel ischemia is low however given her need to take Coumadin and unclear possible arterial occlusion history in the past we'll err on the side of caution and admit her for further evaluation.] Dragon Disclaimer Dragon Disclaimer This electronic medical record was generated, in whole or in part, using a voice recognition dictation system. Departure Departure Impression: Primary Impression: Enteritis Additional Impression: Intractable abdominal pain Disposition: ADMITTED INPATIENT Condition: STABLE Referrals: UNKNOWN PCP NAME (PCP) Problem Qualifiers HEATHER CARRIZALES MD Sep 02, 2017 12:49
[2017-09-02 12:55] LABS: BILIRUBIN,URINE NEGATIVE (NEG); GLUCOSE,URINE NEGATIVE (NEG); NITRITE,URINE NEGATIVE (NEG); PH,URINE 5.5; PROTEIN,URINE NEGATIVE (NEG-TRACE); UROBILINOGEN,URINE 0.2 mg/dL (0.2 mg/dL)
[2017-09-02] MEDS ORDERED: IOHEXOL 300 MG/ML 100ML VIAL. IV ONE (13:00)
[2017-09-02 13:05] LABS: BACTERIA,URINE FEW /HPF (0-FEW); RBC,URINE 0 /HPF (0-2); SQUAMOUS EPITHELIAL CELL,UR MOD /LPF; WBC,URINE OCC /HPF (0-4)
[2017-09-02] MEDS ORDERED: CONTRAST GIVEN MC PRN (13:15)
[2017-09-02 13:39] LABS: BASO # 0.1 x10^3/uL (0.0-0.2); BASO % 1 % (0-3); EOS % 2 % (0-3); HEMATOCRIT 40.5 % (36.0-47.0); HEMOGLOBIN 13.4 g/dL (12.0-15.5); LYMPH # 3.9 x10^3/uL (1.0-4.8); LYMPH % 35 % (24-48); MEAN CORPUSCULAR HEMOGLOBIN 30 pg (25-35); MEAN CORPUSCULAR HGB CONC 33 g/dL (31-37); MEAN CORPUSCULAR VOLUME 90 fL (79-100); MONO % 6 % (0-9); NEUT % 57 % (31-73); PLATELET COUNT 251 x10^3/uL (140-400); RED BLOOD COUNT 4.51 x10^6/uL (3.50-5.40); RED CELL DISTRIBUTION WIDTH 13.8 % (11.5-14.5); WHITE BLOOD COUNT 11.2 x10^3/uL (4.0-11.0)
[2017-09-02 13:50] LABS: INR 1.8 (0.8-1.1); PROTHROMBIN TIME PATIENT 19.5 SEC (11.7-14.0)
[2017-09-02 13:54] LABS: CALCIUM 8.7 mg/dL (8.5-10.1); CREATININE 0.8 mg/dL (0.6-1.0); GFR 75.6; POTASSIUM 3.7 mmol/L (3.5-5.1)
--- NOTE | 2017-09-02 13:57 | EKG ---
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
[2017-09-02 14:01] LABS: ALBUMIN 3.1 g/dL (3.4-5.0); ALBUMIN/GLOBULIN RATIO 0.8 (1.0-1.7); TOTAL BILIRUBIN 0.4 mg/dL (0.2-1.0); TOTAL PROTEIN 6.9 g/dL (6.4-8.2)
--- NOTE | 2017-09-02 14:41 | RAD ---
CT abdomen and pelvis with contrast 09/02/2017 Clinical indication: Right-sided abdominal pain. History of cholecystectomy. Comparison: CT abdomen and pelvis 04/27/2017, 03/15/2017. Technique: Multiple CT images of the abdomen and pelvis were obtained following the intravenous menstruation of 75 mL Omnipaque 300. PQRS Compliance Statement: One or more of the following individualized dose reduction techniques were utilized for this examination: 1. Automated exposure control 2. Adjustment of the mA and/or kV according to patient size 3. Use of iterative reconstruction technique Abdomen and pelvis findings: Heart size is normal thousand and pericardial effusion. Coronary artery calcifications are noted. Liver, spleen, adrenal glands, and pancreas are unremarkable. Prior cholecystectomy. No intra or extrahepatic hepatic bile or ductal dilatation. There is focal cortical scarring in the inferior pole the right kidney. No hydronephrosis. Abdominal aorta is normal in caliber with mild calcified atheromatous disease. Small and large bowel loops are normal in caliber without obstruction. There is mildly dilated gas and fluid-filled loops of small bowel in the central abdomen measuring up to 3 cm with gradual transition to normal caliber small bowel with mild associated circumferential mural thickening and adjacent mesenteric edema. There is mild distal clonic diverticulosis without diverticulitis. Appendix is not visualized and may be surgically absent. No pneumatosis or pneumoperitoneum. No retroperitoneal or mesenteric lymphadenopathy. Mildly distended and unopacified urinary bladder unremarkable. Prior hysterectomy with the vaginal cuff within normal limits. No iliac or inguinal lymphadenopathy. There are no destructive osseous lesions. Impression: 1. Mildly dilated mid abdominal small bowel loops with circumferential thickening and adjacent mesenteric edema. Findings may represent nonspecific enteritis which may be due to ischemic inflammatory and ischemic etiologies. 2. No bowel obstruction, pneumatosis or pneumoperitoneum.
[2017-09-02] MEDS: IV NORMAL SALINE 1000ML BAG 1,000 ML IV SCH ×2 (16:05→23:14)
[2017-09-02] MEDS ORDERED: ONDANSETRON PF 4 MG/2 ML VIAL. IV PRN (16:15)
[2017-09-02] MEDS ORDERED: MORPHINE SULFATE 4 MG/ML DISP.SYRIN. IV PRN (16:15)
[2017-09-02 17:03] VITALS: BP 92/64
[2017-09-02] MEDS ORDERED: DIAZ5TAB4 PO (17:04)
[2017-09-02] MEDS ORDERED: WARF5TAB7 PO (17:04)
[2017-09-02] MEDS: NICOTINE 21MG PATCH. TD SCH (18:27)
[2017-09-02 19:00] VITALS: BP 105/63
[2017-09-02] MEDS: diazePAM 5 MG TABLET PO SCH (20:15)
--- NOTE | 2017-09-02 21:12 | HP ---
ADMIT DATE: 09/02/2017 CHIEF COMPLAINT: Abdominal pain. HISTORY OF PRESENT ILLNESS: The patient is a 52-year-old morbidly obese woman who presented to the Emergency Room with a 2-day history of abdominal pain. She relates that pain typically starts in the right abdomen about umbilicus height and then reaches across to her left abdomen. It is crampy, sometimes sharp and feels like she is having cramps. She denies any nausea or vomiting with this; however, did have diarrhea over the past couple of days three times. Color is brown and no blood was noted. She denies any fevers or chills or dysuria. She relates that in hindsight, she has had similar pain, although not as severe and not accompanied by diarrhea off and on over several months typically about once a week. Of note, she has had multiple abdominal surgeries including a Felicity fundoplication for GERD, cholecystectomy and vaginal hysterectomy. 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 She is unaware of having a diagnosis of hypercoagulability and there is no family history. 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 FAMILY HISTORY: Negative for any GI issues. Grandmother with strokes. 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 Smokes 1-2 packs a day. Drinks alcohol occasionally. Denies any drugs. Lives with her brother, taking care of her disabled grandson. ALLERGIES: No known drug allergies. MEDICATIONS: MAR reconciled with home medications. REVIEW OF SYSTEMS: Positive as per HPI. Rest of organ system review is completely negative. PHYSICAL EXAMINATION: VITAL SIGNS: From today show a blood pressure of 105/63, heart rate of 71 and respiratory rate at 19. She is afebrile. GENERAL: This is a morbidly obese 52-year-old woman, awake, alert, in no acute distress. HEENT: Shows no scleral icterus. NECK: Supple and thick. LUNGS: Clear to auscultation bilaterally. HEART: Regular rate and rhythm. ABDOMEN: Obese, positive bowel sounds. Tenderness to palpation in the right abdomen, mid height. No masses or organomegaly palpable. EXTREMITIES: Show no edema. SKIN: Warm, soft and dry. LABORATORY DATA: CBC with a WBC of 11.2, hemoglobin 13.4 and platelets of 251. Chemistries with a BUN and creatinine of 13 and 0.8, normal electrolytes, normal LFTs, albumin only 3.1. Coags with an INR of 1.8. Urine negative for infectious signs. IMAGING: CT of the abdomen and pelvis, mildly dilated midabdominal small bowel loops with circumferential thickening and adjacent mesenteric edema. Findings may represent nonspecific enteritis, inflammatory versus ischemic. No bowel obstruction, pneumatosis or pneumoperitoneum. ASSESSMENT AND PLAN: The patient is a 52-year-old woman with a peculiar history of what appears to be arterial blood clots to spleen and kidneys who now presents with abdominal pain. CT is more indicative of enteritis, ischemic versus infectious is unclear. Given her history of similar symptoms over several months, ischemic appears more likely although the episode currently seems to be more severe. We will obtain a GI consult. For now, we will keep her on clear liquids, IV fluids will be given. We will monitor vital signs, etc. closely. Given her history of emboli, we will continue warfarin with goal of 2 to 3. She relates that she has not had her INR checked as she was prompted to by her primary care physician as her son currently is in a rehab after a motor vehicle accident in [place], [place]. She apparently has been running low INR for at least a month. It may be better for her protection to switch her to an antithrombin inhibitor rather than continuing on Coumadin. Insurance reimbursement obviously is a significant factor. MEGAN LINN MD DR: VALORIE/nts JOB#: [id number] / [id number] SRUTHI
[2017-09-02 22:56] VITALS: BP 111/65
[2017-09-02] MEDS: WARFARIN 5 MG TABLET. PO SCH (23:26)
[2017-09-03 03:00] VITALS: BP 112/72
[2017-09-03] MEDS: IV NORMAL SALINE 1000ML BAG 1,000 ML IV SCH ×3 (05:09→14:24)
[2017-09-03 06:26] LABS: BASO % 1 % (0-3); EOS % 3 % (0-3); HEMATOCRIT 38.1 % (36.0-47.0); HEMOGLOBIN 12.5 g/dL (12.0-15.5); LYMPH # 3.4 x10^3/uL (1.0-4.8); LYMPH % 43 % (24-48); MEAN CORPUSCULAR HEMOGLOBIN 30 pg (25-35); MEAN CORPUSCULAR HGB CONC 33 g/dL (31-37); MEAN CORPUSCULAR VOLUME 90 fL (79-100); MONO % 6 % (0-9); NEUT % 48 % (31-73); PLATELET COUNT 236 x10^3/uL (140-400); RED BLOOD COUNT 4.21 x10^6/uL (3.50-5.40); RED CELL DISTRIBUTION WIDTH 13.9 % (11.5-14.5)
[2017-09-03 06:30] LABS: ALBUMIN 2.7 g/dL (3.4-5.0); ALBUMIN/GLOBULIN RATIO 0.8 (1.0-1.7); CALCIUM 8.2 mg/dL (8.5-10.1); CREATININE 0.7 mg/dL (0.6-1.0); GFR 88.2; POTASSIUM 3.8 mmol/L (3.5-5.1); TOTAL BILIRUBIN 0.4 mg/dL (0.2-1.0); TOTAL PROTEIN 6.3 g/dL (6.4-8.2)
[2017-09-03 06:58] LABS: INR 1.7 (0.8-1.1); PROTHROMBIN TIME PATIENT 18.7 SEC (11.7-14.0)
[2017-09-03 07:00] VITALS: BP 95/60
[2017-09-03] MEDS: diazePAM 5 MG TABLET PO SCH ×3 (08:40→20:24)
[2017-09-03] MEDS: NICOTINE 21MG PATCH. TD SCH (08:42)
--- NOTE | 2017-09-03 09:24 | PDOC2 ---
CONSULT Date of Consult Date of Consult DATE: 09/03/17 TIME: 09:19 Reason for Consult Reason for Consult: Abd pain Referring Physician Referring Physician: Davi Identification/Chief Complaint Chief Complaint Abd pain, diarrhea Problems: Source Source: Chart review, Patient History of Present Illness Reason for Visit: 52 yo F with 1 month history of intermittent periumbelical pain. Worsened recently with diarrhea, min nausea with pain meds. Would like to eat, and interested in returning to work soon. Past Medical History Cardiovascular: HTN, Hyperlipidemia GI: Diverticulosis (previous brief hospitalization at [place]) Psych: Anxiety Past Surgical History Past Surgical History: Cholecystectomy, Tubal Ligation, Other (hiatal hernia repair) Family History Family History: No Significant Social History 1 pack per day ALCOHOL: rare Current Problem List Problem List Problems Medical Problems: (1) Enteritis Status: Acute (2) Intractable abdominal pain Status: Acute Current Medications Current Medications Current Medications Sodium Chloride 1,000 ml @ 1,000 mls/hr 1X ONCE IV Last administered on 09/02 13:20; Start 09/02/17 at 12:45; Stop 09/02/17 at 13:44; Status DC Ondansetron HCl (Zofran) 4 mg 1X ONCE IV Last administered on 09/02/17 13:21 ; Start 09/02/17 at 12:45; Stop 09/02/17 at 12:48; Status DC Hydromorphone HCl (Dilaudid) 0.5 mg 1X ONCE IV Last administered on 13:22; Start 09/02/17 at 12:45; Stop 09/02/17 at 12:48; Status DC Iohexol (Omnipaque 300 Mg/ml) 75 ml 1X ONCE IV Last administered on 13:00; Start 09/02/17 at 13:00; Stop 09/02/17 at 13:01; Status DC Info (Do NOT chart on this entry -- for MONITORING) 1 each PRN DAILY PRN MC SEE COMMENTS; Start 09/02/17 at 13:15; Stop 09/04/17 at 13:14 Hydromorphone HCl (Dilaudid) 1 mg 1X ONCE IV Last administered on 09/02/17 14:12; Start 09/02/17 at 14:15; Stop 09/02/17 at 14:16; Status DC Ondansetron HCl (Zofran) 4 mg PRN Q8HRS PRN IV NAUSEA/VOMITING; Start at 16:15; Stop 09/03/17 at 16:14 Morphine Sulfate 4 mg PRN Q2HR PRN IV PAIN Last administered on 09/03/17 05: 08; Start 09/02/17 at 16:15; Stop 09/03/17 at 16:14 Sodium Chloride 1,000 ml @ 150 mls/hr Q6H40M IV Last administered on 05:09; Start 09/02/17 at 16:05; Stop 09/03/17 at 16:04 Diazepam (Valium) 5 mg TID PO Last administered on 09/03/17 08:40; Start at 21:00 Warfarin Sodium (Coumadin) 10 mg DAILY16 PO Last administered on 09/02/17 23: 26; Start 09/03/17 at 00:00 Nicotine (Nicoderm Cq 21mg) 1 patch DAILY TD Last administered on 09/03/17 08 :42; Start 09/02/17 at 18:00 Warfarin Sodium (Coumadin Per Pharmacy) 1 each PRN DAILY PRN MC SEE COMMENTS; Start 09/02/17 at 17:45; Status UNV Warfarin Sodium (Coumadin Per Pharmacy) 1 each PRN DAILY PRN MC SEE COMMENTS; Start 09/02/17 at 17:45 Active Scripts Active Reported Warfarin Sodium 5 Mg Tablet 10 Mg PO DAILY Diazepam 5 Mg Tablet 5 Mg PO TID Allergies Allergies: Coded Allergies: No Known Drug Allergies (Unverified , 05/29/15) ROS Gastrointestinal: Yes Nausea, Yes Abdominal Pain, Yes Diarrhea Physical Exam General: Alert, Oriented X3, Cooperative, No acute distress HEENT: Atraumatic, EOMI Lungs: Normal air movement Abdomen: Soft, Other (min TTP RLQ) Extremities: No clubbing, No cyanosis Skin: No rashes, No breakdown Neuro: Normal speech, Sensation intact Psych/Mental Status: Mental status NL, Mood NL Vitals VITALS Vital Signs Date Time Temp Pulse Resp B/P (MAP) Pulse Ox O2 Delivery O2 Flow Rate FiO2 09/03/17 07:00 97.9 67 20 95/60 (72) 98 Room Air 97.9 Labs Labs Laboratory Tests Test 09/02/17 12:15 09/02/17 13:30 09/03/17 05:00 Urine Collection Type Unknown Urine Color Yellow Urine Clarity Clear Urine pH 5.5 Urine Specific [place] 1.025 Urine Protein Negative mg/dL (NEG-TRACE) Urine Glucose (UA) Negative mg/dL (NEG) Urine Ketones (Stick) Negative mg/dL (NEG) Urine Blood Negative (NEG) Urine Nitrite Negative (NEG) Urine Bilirubin Negative (NEG) Urine Urobilinogen Dipstick 0.2 mg/dL (0.2 mg/dL) Urine Leukocyte Esterase Negative (NEG) Urine RBC 0 /HPF (0-2) Urine WBC Occ /HPF (0-4) Urine Squamous Epithelial Cells Mod /LPF Urine Bacteria Few /HPF (0-FEW) Urine Mucus Mod /LPF White Blood Count 11.2 x10^3/uL (4.0-11.0) 8.0 x10^3/uL (4.0-11.0) Red Blood Count 4.51 x10^6/uL (3.50-5.40) 4.21 x10^6/uL (3.50-5.40) Hemoglobin 13.4 g/dL (12.0-15.5) 12.5 g/dL (12.0-15.5) Hematocrit 40.5 % (36.0-47.0) 38.1 % (36.0-47.0) Mean Corpuscular Volume 90 fL (79-100) 90 fL (79-100) Mean Corpuscular Hemoglobin 30 pg (25-35) 30 pg (25-35) Mean Corpuscular Hemoglobin Concent 33 g/dL (31-37) 33 g/dL (31-37) Red Cell Distribution Width 13.8 % (11.5-14.5) 13.9 % (11.5-14.5) Platelet Count 251 x10^3/uL (140-400) 236 x10^3/uL (140-400) Neutrophils (%) (Auto) 57 % (31-73) 48 % (31-73) Lymphocytes (%) (Auto) 35 % (24-48) 43 % (24-48) Monocytes (%) (Auto) 6 % (0-9) 6 % (0-9) Eosinophils (%) (Auto) 2 % (0-3) 3 % (0-3) Basophils (%) (Auto) 1 % (0-3) 1 % (0-3) Neutrophils # (Auto) 6.4 x10^3uL (1.8-7.7) 3.9 x10^3uL (1.8-7.7) Lymphocytes # (Auto) 3.9 x10^3/uL (1.0-4.8) 3.4 x10^3/uL (1.0-4.8) Monocytes # (Auto) 0.6 x10^3/uL (0.0-1.1) 0.5 x10^3/uL (0.0-1.1) Eosinophils # (Auto) 0.2 x10^3/uL (0.0-0.7) 0.2 x10^3/uL (0.0-0.7) Basophils # (Auto) 0.1 x10^3/uL (0.0-0.2) 0.0 x10^3/uL (0.0-0.2) Prothrombin Time 19.5 SEC (11.7-14.0) 18.7 SEC (11.7-14.0) Prothromb Time International Ratio 1.8 (0.8-1.1) 1.7 (0.8-1.1) Sodium Level 141 mmol/L (136-145) 143 mmol/L (136-145) Potassium Level 3.7 mmol/L (3.5-5.1) 3.8 mmol/L (3.5-5.1) Chloride Level 107 mmol/L (98-107) 110 mmol/L (98-107) Carbon Dioxide Level 26 mmol/L (21-32) 27 mmol/L (21-32) Anion Gap 8 (6-14) 6 (6-14) Blood Urea Nitrogen 13 mg/dL (7-20) 9 mg/dL (7-20) Creatinine 0.8 mg/dL (0.6-1.0) 0.7 mg/dL (0.6-1.0) Estimated GFR (Cockcroft-Gault) 75.6 88.2 BUN/Creatinine Ratio 16 (6-20) 13 (6-20) Glucose Level 94 mg/dL (70-99) 83 mg/dL (70-99) Calcium Level 8.7 mg/dL (8.5-10.1) 8.2 mg/dL (8.5-10.1) Total Bilirubin 0.4 mg/dL (0.2-1.0) 0.4 mg/dL (0.2-1.0) Aspartate Amino Transf (AST/SGOT) 13 U/L (15-37) 13 U/L (15-37) Alanine Aminotransferase (ALT/SGPT) 18 U/L (14-59) 16 U/L (14-59) Alkaline Phosphatase 90 U/L (46-116) 79 U/L (46-116) Total Protein 6.9 g/dL (6.4-8.2) 6.3 g/dL (6.4-8.2) Albumin 3.1 g/dL (3.4-5.0) 2.7 g/dL (3.4-5.0) Albumin/Globulin Ratio 0.8 (1.0-1.7) 0.8 (1.0-1.7) Lipase 156 U/L (73-393) Laboratory Tests Test 09/02/17 12:15 09/02/17 13:30 09/03/17 05:00 Urine Collection Type Unknown Urine Color Yellow Urine Clarity Clear Urine pH 5.5 Urine Specific [place] 1.025 Urine Protein Negative mg/dL (NEG-TRACE) Urine Glucose (UA) Negative mg/dL (NEG) Urine Ketones (Stick) Negative mg/dL (NEG) Urine Blood Negative (NEG) Urine Nitrite Negative (NEG) Urine Bilirubin Negative (NEG) Urine Urobilinogen Dipstick 0.2 mg/dL (0.2 mg/dL) Urine Leukocyte Esterase Negative (NEG) Urine RBC 0 /HPF (0-2) Urine WBC Occ /HPF (0-4) Urine Squamous Epithelial Cells Mod /LPF Urine Bacteria Few /HPF (0-FEW) Urine Mucus Mod /LPF White Blood Count 11.2 x10^3/uL (4.0-11.0) 8.0 x10^3/uL (4.0-11.0) Red Blood Count 4.51 x10^6/uL (3.50-5.40) 4.21 x10^6/uL (3.50-5.40) Hemoglobin 13.4 g/dL (12.0-15.5) 12.5 g/dL (12.0-15.5) Hematocrit 40.5 % (36.0-47.0) 38.1 % (36.0-47.0) Mean Corpuscular Volume 90 fL (79-100) 90 fL (79-100) Mean Corpuscular Hemoglobin 30 pg (25-35) 30 pg (25-35) Mean Corpuscular Hemoglobin Concent 33 g/dL (31-37) 33 g/dL (31-37) Red Cell Distribution Width 13.8 % (11.5-14.5) 13.9 % (11.5-14.5) Platelet Count 251 x10^3/uL (140-400) 236 x10^3/uL (140-400) Neutrophils (%) (Auto) 57 % (31-73) 48 % (31-73) Lymphocytes (%) (Auto) 35 % (24-48) 43 % (24-48) Monocytes (%) (Auto) 6 % (0-9) 6 % (0-9) Eosinophils (%) (Auto) 2 % (0-3) 3 % (0-3) Basophils (%) (Auto) 1 % (0-3) 1 % (0-3) Neutrophils # (Auto) 6.4 x10^3uL (1.8-7.7) 3.9 x10^3uL (1.8-7.7) Lymphocytes # (Auto) 3.9 x10^3/uL (1.0-4.8) 3.4 x10^3/uL (1.0-4.8) Monocytes # (Auto) 0.6 x10^3/uL (0.0-1.1) 0.5 x10^3/uL (0.0-1.1) Eosinophils # (Auto) 0.2 x10^3/uL (0.0-0.7) 0.2 x10^3/uL (0.0-0.7) Basophils # (Auto) 0.1 x10^3/uL (0.0-0.2) 0.0 x10^3/uL (0.0-0.2) Prothrombin Time 19.5 SEC (11.7-14.0) 18.7 SEC (11.7-14.0) Prothromb Time International Ratio 1.8 (0.8-1.1) 1.7 (0.8-1.1) Sodium Level 141 mmol/L (136-145) 143 mmol/L (136-145) Potassium Level 3.7 mmol/L (3.5-5.1) 3.8 mmol/L (3.5-5.1) Chloride Level 107 mmol/L (98-107) 110 mmol/L (98-107) Carbon Dioxide Level 26 mmol/L (21-32) 27 mmol/L (21-32) Anion Gap 8 (6-14) 6 (6-14) Blood Urea Nitrogen 13 mg/dL (7-20) 9 mg/dL (7-20) Creatinine 0.8 mg/dL (0.6-1.0) 0.7 mg/dL (0.6-1.0) Estimated GFR (Cockcroft-Gault) 75.6 88.2 BUN/Creatinine Ratio 16 (6-20) 13 (6-20) Glucose Level 94 mg/dL (70-99) 83 mg/dL (70-99) Calcium Level 8.7 mg/dL (8.5-10.1) 8.2 mg/dL (8.5-10.1) Total Bilirubin 0.4 mg/dL (0.2-1.0) 0.4 mg/dL (0.2-1.0) Aspartate Amino Transf (AST/SGOT) 13 U/L (15-37) 13 U/L (15-37) Alanine Aminotransferase (ALT/SGPT) 18 U/L (14-59) 16 U/L (14-59) Alkaline Phosphatase 90 U/L (46-116) 79 U/L (46-116) Total Protein 6.9 g/dL (6.4-8.2) 6.3 g/dL (6.4-8.2) Albumin 3.1 g/dL (3.4-5.0) 2.7 g/dL (3.4-5.0) Albumin/Globulin Ratio 0.8 (1.0-1.7) 0.8 (1.0-1.7) Lipase 156 U/L (73-393) Images Images CT with min small bowel dilation and thickening c/w enteritis Assessment/Plan Assessment/Plan gastroenteritis d/w GI favor gastroenteritis, gradually improving OK for clears no surgical plans Thanks for consult! JUANJO WILLS MD Sep 03, 2017 09:24
--- NOTE | 2017-09-03 09:54 | PDOC2 ---
GI CONSULT Reason For Consult: Enteritis w/ CT finding of possible ischemia HPI: HPI: 52 y/o female w/ intermittent periumbilical pain/cramping x 4 weeks, worse the last couple days settling in the RLQ and associated w/ diarrhea. No precipitating events except to say she ate a taco from [employer] on Friday night , the last time she's eaten. Nausea once associated w/ pain medication. No vomiting, hematemesis, reflux/heartburn, hematochezia, melena. Labs fairly unremarkable. CT suggestive of non-specific enteritis. 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 S/p cholecystectomy (for stones in [place]), followed by what sounds like ERCP (@) , also Felicity fundoplication (in [place], [place]). Last EGD and colonoscopy @ ~2 years ago, recalls no significant findings except diverticulosis although does have a h/o colon polyps (on prior colonoscopies). No NSAID use. H/o abd pain reportedly previously attributed to "scar tissue;" however, this pain is different. PMH: PMH: blood clots (in aorta, spleen, kidneys on chronic Warfarin), HLD, anxiety/ depression, MENDEZ, cholelithiasis, choledocholithiasis, colon polyps, diverticulosis (diverticulitis?), cholecystectomy, ERCP, Felicity fundoplication, hysterectomy, right oophorectomy FH: Family History: Other (father - colon polyps) Social History: Smoke: 2 packs per day ALCOHOL: occassional Drugs: None ROS: GEN: Denies fevers, chills, sweats HEENT: Denies blurred vision, sore throat CV: Denies chest pain RESP: Denies shortness of air, cough GI: Per HPI : Denies hematuria, dysuria ENDO: Denies weight changes NEURO: Denies confusion, dizziness MSK: Denies weakness, joint pain/swelling SKIN: Denies jaundice, pruritus Vitals: Vitals: Vital Signs Date Time Temp Pulse Resp B/P (MAP) Pulse Ox O2 Delivery O2 Flow Rate FiO2 09/03/17 07:00 97.9 67 20 95/60 (72) 98 Room Air 97.9 Labs: Labs: Laboratory Tests Test 09/02/17 12:15 09/02/17 13:30 09/03/17 05:00 Urine Collection Type Unknown Urine Color Yellow Urine Clarity Clear Urine pH 5.5 Urine Specific [place] 1.025 Urine Protein Negative mg/dL (NEG-TRACE) Urine Glucose (UA) Negative mg/dL (NEG) Urine Ketones (Stick) Negative mg/dL (NEG) Urine Blood Negative (NEG) Urine Nitrite Negative (NEG) Urine Bilirubin Negative (NEG) Urine Urobilinogen Dipstick 0.2 mg/dL (0.2 mg/dL) Urine Leukocyte Esterase Negative (NEG) Urine RBC 0 /HPF (0-2) Urine WBC Occ /HPF (0-4) Urine Squamous Epithelial Cells Mod /LPF Urine Bacteria Few /HPF (0-FEW) Urine Mucus Mod /LPF White Blood Count 11.2 x10^3/uL (4.0-11.0) 8.0 x10^3/uL (4.0-11.0) Red Blood Count 4.51 x10^6/uL (3.50-5.40) 4.21 x10^6/uL (3.50-5.40) Hemoglobin 13.4 g/dL (12.0-15.5) 12.5 g/dL (12.0-15.5) Hematocrit 40.5 % (36.0-47.0) 38.1 % (36.0-47.0) Mean Corpuscular Volume 90 fL (79-100) 90 fL (79-100) Mean Corpuscular Hemoglobin 30 pg (25-35) 30 pg (25-35) Mean Corpuscular Hemoglobin Concent 33 g/dL (31-37) 33 g/dL (31-37) Red Cell Distribution Width 13.8 % (11.5-14.5) 13.9 % (11.5-14.5) Platelet Count 251 x10^3/uL (140-400) 236 x10^3/uL (140-400) Neutrophils (%) (Auto) 57 % (31-73) 48 % (31-73) Lymphocytes (%) (Auto) 35 % (24-48) 43 % (24-48) Monocytes (%) (Auto) 6 % (0-9) 6 % (0-9) Eosinophils (%) (Auto) 2 % (0-3) 3 % (0-3) Basophils (%) (Auto) 1 % (0-3) 1 % (0-3) Neutrophils # (Auto) 6.4 x10^3uL (1.8-7.7) 3.9 x10^3uL (1.8-7.7) Lymphocytes # (Auto) 3.9 x10^3/uL (1.0-4.8) 3.4 x10^3/uL (1.0-4.8) Monocytes # (Auto) 0.6 x10^3/uL (0.0-1.1) 0.5 x10^3/uL (0.0-1.1) Eosinophils # (Auto) 0.2 x10^3/uL (0.0-0.7) 0.2 x10^3/uL (0.0-0.7) Basophils # (Auto) 0.1 x10^3/uL (0.0-0.2) 0.0 x10^3/uL (0.0-0.2) Prothrombin Time 19.5 SEC (11.7-14.0) 18.7 SEC (11.7-14.0) Prothromb Time International Ratio 1.8 (0.8-1.1) 1.7 (0.8-1.1) Sodium Level 141 mmol/L (136-145) 143 mmol/L (136-145) Potassium Level 3.7 mmol/L (3.5-5.1) 3.8 mmol/L (3.5-5.1) Chloride Level 107 mmol/L (98-107) 110 mmol/L (98-107) Carbon Dioxide Level 26 mmol/L (21-32) 27 mmol/L (21-32) Anion Gap 8 (6-14) 6 (6-14) Blood Urea Nitrogen 13 mg/dL (7-20) 9 mg/dL (7-20) Creatinine 0.8 mg/dL (0.6-1.0) 0.7 mg/dL (0.6-1.0) Estimated GFR (Cockcroft-Gault) 75.6 88.2 BUN/Creatinine Ratio 16 (6-20) 13 (6-20) Glucose Level 94 mg/dL (70-99) 83 mg/dL (70-99) Calcium Level 8.7 mg/dL (8.5-10.1) 8.2 mg/dL (8.5-10.1) Total Bilirubin 0.4 mg/dL (0.2-1.0) 0.4 mg/dL (0.2-1.0) Aspartate Amino Transf (AST/SGOT) 13 U/L (15-37) 13 U/L (15-37) Alanine Aminotransferase (ALT/SGPT) 18 U/L (14-59) 16 U/L (14-59) Alkaline Phosphatase 90 U/L (46-116) 79 U/L (46-116) Total Protein 6.9 g/dL (6.4-8.2) 6.3 g/dL (6.4-8.2) Albumin 3.1 g/dL (3.4-5.0) 2.7 g/dL (3.4-5.0) Albumin/Globulin Ratio 0.8 (1.0-1.7) 0.8 (1.0-1.7) Lipase 156 U/L (73-393) Allergies: Coded Allergies: No Known Drug Allergies (Unverified , 05/29/15) Medications: Current Medications Medications (Trade) Dose Ordered Sig/Radha Route PRN Reason Start Time Stop Time Status Last Admin Dose Admin Sodium Chloride 1,000 ml @ 1,000 mls/hr 1X ONCE IV 09/02/17 12:45 09/02/17 13:44 DC 09/02/17 13:20 Ondansetron HCl (Zofran) 4 mg 1X ONCE IV 09/02/17 12:45 09/02/17 12:48 DC 09/02/17 13:21 Hydromorphone HCl (Dilaudid) 0.5 mg 1X ONCE IV 09/02/17 12:45 09/02/17 12:48 DC 09/02/17 13:22 Iohexol (Omnipaque 300 Mg/ml) 75 ml 1X ONCE IV 09/02/17 13:00 09/02/17 13:01 DC 09/02/17 13:00 Hydromorphone HCl (Dilaudid) 1 mg 1X ONCE IV 09/02/17 14:15 09/02/17 14:16 DC 09/02/17 14:12 Morphine Sulfate 4 mg PRN Q2HR PRN IV PAIN 09/02/17 16:15 09/03/17 16:14 09/03/17 05:08 Sodium Chloride 1,000 ml @ 150 mls/hr Q6H40M IV 09/02/17 16:05 09/03/17 16:04 09/03/17 05:09 Diazepam (Valium) 5 mg TID PO 09/02/17 21:00 09/03/17 08:40 Warfarin Sodium (Coumadin) 10 mg DAILY16 PO 09/03/17 00:00 09/02/17 23:26 Nicotine (Nicoderm Cq 21mg) 1 patch DAILY TD 09/02/17 18:00 09/03/17 08:42 Imaging: Imaging: CT A/P Impression: 1. Mildly dilated mid abdominal small bowel loops with circumferential thickening and adjacent mesenteric edema. Findings may represent nonspecific enteritis which may be due to ischemic inflammatory and ischemic etiologies. 2. No bowel obstruction, pneumatosis or pneumoperitoneum. PE: GEN: NAD HEENT: Atraumatic, PERRL LUNGS: CTAB HEART: RRR ABD: NABS, S/ND, RLQ discomfort EXTREMITY: No edema SKIN: No rashes, no jaundice NEURO/PSYCH: A & O 3 A/P: A/P: Periumbilical/RLQ pain, diarrhea -nonspecific enteritis on CT -s/p cholecystectomy, ERCP for choledocholithiasis, recent EGD and colonoscopy @ [facility], and Felicity fundoplication H/o blood clots on Warfarin -- She was to discharge today, defer to primary. ADAT. Check C Diff, stool culture, start PO atbx for enteritis. MENDOZA CAMARILLO Sep 03, 2017 09:54
[2017-09-03] MEDS: metroNIDAZOLE 500 MG TABLET PO SCH ×2 (10:44→20:24)
[2017-09-03] MEDS: CIPROFLOXACIN HCL 250 MG TABLET. PO SCH ×2 (10:44→20:24)
[2017-09-03 11:00] VITALS: BP 114/66
[2017-09-03] MEDS ORDERED: traMADol 50 MG TABLET PO PRN (11:30)
[2017-09-03] MEDS ORDERED: ONDANSETRON PF 4 MG/2 ML VIAL. IV PRN (11:30)
[2017-09-03] MEDS ORDERED: DOCUSATE SODIUM 100 MG CAPSULE. PO PRN (11:30)
[2017-09-03] MEDS ORDERED: ACETAMINOPHEN 325 MG TABLET. PO PRN (11:30)
[2017-09-03] MEDS ORDERED: hydrALAZINE 20 MG/ML VIAL. IVP PRN (11:30)
--- NOTE | 2017-09-03 13:38 | PDOC ---
PROGRESS NOTES Chief Complaint Chief Complaint lower abd pain with gastroenteritis likely chronic RUQ pain h/o multiple abd sx status post fundoplication, cholecystectomy and TVH with right oophorectomy. 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 GERD morbid obesity mild malnutrition plan: fu with gi check cdiff, stool cx on cipro , flagyl cont home meds full liquid dvt, gi ppx cont warfarin, INR daily History of Present Illness History of Present Illness ROS: no fever, chills, sob or chest pain cont lower abd pain, with tenderness Vitals Vitals Vital Signs Date Time Temp Pulse Resp B/P (MAP) Pulse Ox O2 Delivery O2 Flow Rate FiO2 09/03/17 11:00 98.0 22 114/66 (82) 99 Room Air 98.0 09/03/17 07:00 67 Physical Exam General: Alert, Oriented X3, Cooperative, No acute distress Heart: Regular rate, Normal S1, Normal S2 Lungs: Clear Abdomen: Normal bowel sounds, Soft, Other (min TTP RLQ, lower middle abd mild tenderness) Extremities: No clubbing, No cyanosis Skin: No rashes, No breakdown Labs LABS Laboratory Tests Test 09/03/17 05:00 White Blood Count 8.0 x10^3/uL (4.0-11.0) Red Blood Count 4.21 x10^6/uL (3.50-5.40) Hemoglobin 12.5 g/dL (12.0-15.5) Hematocrit 38.1 % (36.0-47.0) Mean Corpuscular Volume 90 fL (79-100) Mean Corpuscular Hemoglobin 30 pg (25-35) Mean Corpuscular Hemoglobin Concent 33 g/dL (31-37) Red Cell Distribution Width 13.9 % (11.5-14.5) Platelet Count 236 x10^3/uL (140-400) Neutrophils (%) (Auto) 48 % (31-73) Lymphocytes (%) (Auto) 43 % (24-48) Monocytes (%) (Auto) 6 % (0-9) Eosinophils (%) (Auto) 3 % (0-3) Basophils (%) (Auto) 1 % (0-3) Neutrophils # (Auto) 3.9 x10^3uL (1.8-7.7) Lymphocytes # (Auto) 3.4 x10^3/uL (1.0-4.8) Monocytes # (Auto) 0.5 x10^3/uL (0.0-1.1) Eosinophils # (Auto) 0.2 x10^3/uL (0.0-0.7) Basophils # (Auto) 0.0 x10^3/uL (0.0-0.2) Prothrombin Time 18.7 SEC (11.7-14.0) Prothromb Time International Ratio 1.7 (0.8-1.1) Sodium Level 143 mmol/L (136-145) Potassium Level 3.8 mmol/L (3.5-5.1) Chloride Level 110 mmol/L (98-107) Carbon Dioxide Level 27 mmol/L (21-32) Anion Gap 6 (6-14) Blood Urea Nitrogen 9 mg/dL (7-20) Creatinine 0.7 mg/dL (0.6-1.0) Estimated GFR (Cockcroft-Gault) 88.2 BUN/Creatinine Ratio 13 (6-20) Glucose Level 83 mg/dL (70-99) Calcium Level 8.2 mg/dL (8.5-10.1) Total Bilirubin 0.4 mg/dL (0.2-1.0) Aspartate Amino Transf (AST/SGOT) 13 U/L (15-37) Alanine Aminotransferase (ALT/SGPT) 16 U/L (14-59) Alkaline Phosphatase 79 U/L (46-116) Total Protein 6.3 g/dL (6.4-8.2) Albumin 2.7 g/dL (3.4-5.0) Albumin/Globulin Ratio 0.8 (1.0-1.7) Assessment and Plan Assessmemt and Plan Problems Medical Problems: (1) Enteritis Status: Acute (2) Intractable abdominal pain Status: Acute Problems: Comment Review of Relevant I have reviewed the following items lorin (where applicable) has been applied. Labs Laboratory Tests Test 09/02/17 12:15 09/02/17 13:30 09/03/17 05:00 Urine Collection Type Unknown Urine Color Yellow Urine Clarity Clear Urine pH 5.5 Urine Specific [place] 1.025 Urine Protein Negative mg/dL (NEG-TRACE) Urine Glucose (UA) Negative mg/dL (NEG) Urine Ketones (Stick) Negative mg/dL (NEG) Urine Blood Negative (NEG) Urine Nitrite Negative (NEG) Urine Bilirubin Negative (NEG) Urine Urobilinogen Dipstick 0.2 mg/dL (0.2 mg/dL) Urine Leukocyte Esterase Negative (NEG) Urine RBC 0 /HPF (0-2) Urine WBC Occ /HPF (0-4) Urine Squamous Epithelial Cells Mod /LPF Urine Bacteria Few /HPF (0-FEW) Urine Mucus Mod /LPF White Blood Count 11.2 x10^3/uL (4.0-11.0) 8.0 x10^3/uL (4.0-11.0) Red Blood Count 4.51 x10^6/uL (3.50-5.40) 4.21 x10^6/uL (3.50-5.40) Hemoglobin 13.4 g/dL (12.0-15.5) 12.5 g/dL (12.0-15.5) Hematocrit 40.5 % (36.0-47.0) 38.1 % (36.0-47.0) Mean Corpuscular Volume 90 fL (79-100) 90 fL (79-100) Mean Corpuscular Hemoglobin 30 pg (25-35) 30 pg (25-35) Mean Corpuscular Hemoglobin Concent 33 g/dL (31-37) 33 g/dL (31-37) Red Cell Distribution Width 13.8 % (11.5-14.5) 13.9 % (11.5-14.5) Platelet Count 251 x10^3/uL (140-400) 236 x10^3/uL (140-400) Neutrophils (%) (Auto) 57 % (31-73) 48 % (31-73) Lymphocytes (%) (Auto) 35 % (24-48) 43 % (24-48) Monocytes (%) (Auto) 6 % (0-9) 6 % (0-9) Eosinophils (%) (Auto) 2 % (0-3) 3 % (0-3) Basophils (%) (Auto) 1 % (0-3) 1 % (0-3) Neutrophils # (Auto) 6.4 x10^3uL (1.8-7.7) 3.9 x10^3uL (1.8-7.7) Lymphocytes # (Auto) 3.9 x10^3/uL (1.0-4.8) 3.4 x10^3/uL (1.0-4.8) Monocytes # (Auto) 0.6 x10^3/uL (0.0-1.1) 0.5 x10^3/uL (0.0-1.1) Eosinophils # (Auto) 0.2 x10^3/uL (0.0-0.7) 0.2 x10^3/uL (0.0-0.7) Basophils # (Auto) 0.1 x10^3/uL (0.0-0.2) 0.0 x10^3/uL (0.0-0.2) Prothrombin Time 19.5 SEC (11.7-14.0) 18.7 SEC (11.7-14.0) Prothromb Time International Ratio 1.8 (0.8-1.1) 1.7 (0.8-1.1) Sodium Level 141 mmol/L (136-145) 143 mmol/L (136-145) Potassium Level 3.7 mmol/L (3.5-5.1) 3.8 mmol/L (3.5-5.1) Chloride Level 107 mmol/L (98-107) 110 mmol/L (98-107) Carbon Dioxide Level 26 mmol/L (21-32) 27 mmol/L (21-32) Anion Gap 8 (6-14) 6 (6-14) Blood Urea Nitrogen 13 mg/dL (7-20) 9 mg/dL (7-20) Creatinine 0.8 mg/dL (0.6-1.0) 0.7 mg/dL (0.6-1.0) Estimated GFR (Cockcroft-Gault) 75.6 88.2 BUN/Creatinine Ratio 16 (6-20) 13 (6-20) Glucose Level 94 mg/dL (70-99) 83 mg/dL (70-99) Calcium Level 8.7 mg/dL (8.5-10.1) 8.2 mg/dL (8.5-10.1) Total Bilirubin 0.4 mg/dL (0.2-1.0) 0.4 mg/dL (0.2-1.0) Aspartate Amino Transf (AST/SGOT) 13 U/L (15-37) 13 U/L (15-37) Alanine Aminotransferase (ALT/SGPT) 18 U/L (14-59) 16 U/L (14-59) Alkaline Phosphatase 90 U/L (46-116) 79 U/L (46-116) Total Protein 6.9 g/dL (6.4-8.2) 6.3 g/dL (6.4-8.2) Albumin 3.1 g/dL (3.4-5.0) 2.7 g/dL (3.4-5.0) Albumin/Globulin Ratio 0.8 (1.0-1.7) 0.8 (1.0-1.7) Lipase 156 U/L (73-393) Laboratory Tests Test 09/03/17 05:00 White Blood Count 8.0 x10^3/uL (4.0-11.0) Red Blood Count 4.21 x10^6/uL (3.50-5.40) Hemoglobin 12.5 g/dL (12.0-15.5) Hematocrit 38.1 % (36.0-47.0) Mean Corpuscular Volume 90 fL (79-100) Mean Corpuscular Hemoglobin 30 pg (25-35) Mean Corpuscular Hemoglobin Concent 33 g/dL (31-37) Red Cell Distribution Width 13.9 % (11.5-14.5) Platelet Count 236 x10^3/uL (140-400) Neutrophils (%) (Auto) 48 % (31-73) Lymphocytes (%) (Auto) 43 % (24-48) Monocytes (%) (Auto) 6 % (0-9) Eosinophils (%) (Auto) 3 % (0-3) Basophils (%) (Auto) 1 % (0-3) Neutrophils # (Auto) 3.9 x10^3uL (1.8-7.7) Lymphocytes # (Auto) 3.4 x10^3/uL (1.0-4.8) Monocytes # (Auto) 0.5 x10^3/uL (0.0-1.1) Eosinophils # (Auto) 0.2 x10^3/uL (0.0-0.7) Basophils # (Auto) 0.0 x10^3/uL (0.0-0.2) Prothrombin Time 18.7 SEC (11.7-14.0) Prothromb Time International Ratio 1.7 (0.8-1.1) Sodium Level 143 mmol/L (136-145) Potassium Level 3.8 mmol/L (3.5-5.1) Chloride Level 110 mmol/L (98-107) Carbon Dioxide Level 27 mmol/L (21-32) Anion Gap 6 (6-14) Blood Urea Nitrogen 9 mg/dL (7-20) Creatinine 0.7 mg/dL (0.6-1.0) Estimated GFR (Cockcroft-Gault) 88.2 BUN/Creatinine Ratio 13 (6-20) Glucose Level 83 mg/dL (70-99) Calcium Level 8.2 mg/dL (8.5-10.1) Total Bilirubin 0.4 mg/dL (0.2-1.0) Aspartate Amino Transf (AST/SGOT) 13 U/L (15-37) Alanine Aminotransferase (ALT/SGPT) 16 U/L (14-59) Alkaline Phosphatase 79 U/L (46-116) Total Protein 6.3 g/dL (6.4-8.2) Albumin 2.7 g/dL (3.4-5.0) Albumin/Globulin Ratio 0.8 (1.0-1.7) Medications Current Medications Sodium Chloride 1,000 ml @ 1,000 mls/hr 1X ONCE IV Last administered on 09/02 13:20; Start 09/02/17 at 12:45; Stop 09/02/17 at 13:44; Status DC Ondansetron HCl (Zofran) 4 mg 1X ONCE IV Last administered on 09/02/17 13:21 ; Start 09/02/17 at 12:45; Stop 09/02/17 at 12:48; Status DC Hydromorphone HCl (Dilaudid) 0.5 mg 1X ONCE IV Last administered on 13:22; Start 09/02/17 at 12:45; Stop 09/02/17 at 12:48; Status DC Iohexol (Omnipaque 300 Mg/ml) 75 ml 1X ONCE IV Last administered on 13:00; Start 09/02/17 at 13:00; Stop 09/02/17 at 13:01; Status DC Info (Do NOT chart on this entry -- for MONITORING) 1 each PRN DAILY PRN MC SEE COMMENTS; Start 09/02/17 at 13:15; Stop 09/04/17 at 13:14 Hydromorphone HCl (Dilaudid) 1 mg 1X ONCE IV Last administered on 09/02/17 14:12; Start 09/02/17 at 14:15; Stop 09/02/17 at 14:16; Status DC Ondansetron HCl (Zofran) 4 mg PRN Q8HRS PRN IV NAUSEA/VOMITING; Start at 16:15; Stop 09/03/17 at 16:14 Morphine Sulfate 4 mg PRN Q2HR PRN IV PAIN Last administered on 09/03/17 05: 08; Start 09/02/17 at 16:15; Stop 09/03/17 at 16:14 Sodium Chloride 1,000 ml @ 150 mls/hr Q6H40M IV Last administered on 05:09; Start 09/02/17 at 16:05; Stop 09/03/17 at 16:04 Diazepam (Valium) 5 mg TID PO Last administered on 09/03/17 08:40; Start at 21:00 Warfarin Sodium (Coumadin) 10 mg DAILY16 PO Last administered on 09/02/17 23: 26; Start 09/03/17 at 00:00 Nicotine (Nicoderm Cq 21mg) 1 patch DAILY TD Last administered on 09/03/17 08 :42; Start 09/02/17 at 18:00 Warfarin Sodium (Coumadin Per Pharmacy) 1 each PRN DAILY PRN MC SEE COMMENTS; Start 09/02/17 at 17:45; Status UNV Warfarin Sodium (Coumadin Per Pharmacy) 1 each PRN DAILY PRN MC SEE COMMENTS; Start 09/02/17 at 17:45 Metronidazole (Flagyl) 500 mg BID PO Last administered on 09/03/17 10:44; Start 09/03/17 at 10:00 Ciprofloxacin (Cipro) 500 mg BID PO Last administered on 09/03/17 10:44; Start 09/03/17 at 11:00 Acetaminophen (Tylenol) 650 mg PRN Q6HRS PRN PO FEVER; Start 09/03/17 at 11:30 Ondansetron HCl (Zofran) 4 mg PRN Q6HRS PRN IV NAUSEA/VOMITING; Start at 11:30 Morphine Sulfate 2 mg PRN Q2HR PRN IV PAIN; Start 09/03/17 at 11:30 Tramadol HCl (Ultram) 50 mg PRN Q6HRS PRN PO PAIN; Start 09/03/17 at 11:30 Hydralazine HCl (Apresoline Inj) 10 mg PRN Q4HRS PRN IVP ELEVATED BP, SEE COMMENTS; Start 09/03/17 at 11:30 Docusate Sodium (Colace) 100 mg PRN DAILY PRN PO CONSTIPATION; Start 09/03/17 at 11:30 Active Scripts Active Reported Warfarin Sodium 5 Mg Tablet 10 Mg PO DAILY Diazepam 5 Mg Tablet 5 Mg PO TID Vitals/I & O Vital Sign - Last 24 Hours 09/02/17 09/02/17 09/02/17 09/02/17 14:16 15:16 17:03 17:57 Temp 96.1 96.1 Pulse 71 71 63 Resp 19 B/P (MAP) 109/63 (78) 105/63 (77) 92/64 (73) Pulse Ox 98 98 93 O2 Delivery Room Air Room Air Room Air Room Air 09/02/17 09/02/17 09/02/17 09/02/17 18:05 19:00 20:00 22:56 Temp 97.7 97.9 97.7 97.9 Pulse 69 64 Resp 18 18 B/P (MAP) 105/63 (77) 111/65 (80) Pulse Ox 96 92 O2 Delivery Room Air Room Air Room Air Room Air 09/03/17 09/03/17 09/03/17 09/03/17 03:00 07:00 07:40 11:00 Temp 97.9 97.9 98.0 97.9 97.9 98.0 Pulse 70 67 Resp 18 20 22 B/P (MAP) 112/72 (85) 95/60 (72) 114/66 (82) Pulse Ox 93 98 99 O2 Delivery Room Air Room Air Room Air Room Air Intake and Output 09/02/17 09/02/17 09/03/17 14:59 22:59 06:59 Intake Total 0 ml 250 ml Output Total 250 ml Balance 0 ml 0 ml HOSSEIN TALAVERA MD Sep 03, 2017 13:38
[2017-09-03 15:49] VITALS: BP 111/73
[2017-09-03] MEDS: WARFARIN 5 MG TABLET. PO SCH (17:31)
[2017-09-03 19:00] VITALS: BP 122/71
[2017-09-03] MEDS: LACTOBACILLUS RHAMNOSUS GG 1 CAPSULE. PO SCH (20:24)
[2017-09-03] MEDS: MORPHINE SULFATE 4 MG/ML DISP.SYRIN. IV PRN ×2 (21:21→23:26)
[2017-09-03 23:00] VITALS: BP 122/71
[2017-09-03] MEDS ORDERED: CALCIUM CARBONATE 500 MG TAB.CHEW PO PRN (23:00)
[2017-09-03] MEDS ORDERED: PANTOPRAZOLE IV PUSH 40 MG VIAL. IVP ONE (23:15)
[2017-09-03] MEDS ORDERED: LIDO:MAALOX:DONNATAL 1:1:1 15 ML SINGLE DOSE SWSW PRN (23:15)
[2017-09-04 03:00] VITALS: BP 120/69
[2017-09-04 04:29] LABS: BASO % 0 % (0-3); EOS % 3 % (0-3); HEMATOCRIT 38.1 % (36.0-47.0); HEMOGLOBIN 12.7 g/dL (12.0-15.5); LYMPH % 42 % (24-48); MEAN CORPUSCULAR HEMOGLOBIN 30 pg (25-35); MEAN CORPUSCULAR HGB CONC 33 g/dL (31-37); MEAN CORPUSCULAR VOLUME 91 fL (79-100); MONO % 8 % (0-9); NEUT % 47 % (31-73); PLATELET COUNT 254 x10^3/uL (140-400); RED CELL DISTRIBUTION WIDTH 14.1 % (11.5-14.5); WHITE BLOOD COUNT 7.1 x10^3/uL (4.0-11.0)
[2017-09-04 04:52] LABS: CALCIUM 8.2 mg/dL (8.5-10.1); CREATININE 0.9 mg/dL (0.6-1.0); POTASSIUM 3.7 mmol/L (3.5-5.1)
[2017-09-04 05:27] LABS: INR 1.9 (0.8-1.1); PROTHROMBIN TIME PATIENT 20.6 SEC (11.7-14.0)
[2017-09-04 07:00] VITALS: BP 118/70
[2017-09-04] MEDS: metroNIDAZOLE 500 MG TABLET PO SCH (08:29)
[2017-09-04] MEDS: diazePAM 5 MG TABLET PO SCH (08:30)
[2017-09-04] MEDS: LACTOBACILLUS RHAMNOSUS GG 1 CAPSULE. PO SCH (08:30)
[2017-09-04] MEDS: CIPROFLOXACIN HCL 250 MG TABLET. PO SCH (08:30)
[2017-09-04] MEDS: NICOTINE 21MG PATCH. TD SCH (08:31)
[2017-09-04] MEDS ORDERED: METR500T PO (10:47)
[2017-09-04] MEDS ORDERED: CIPR250T30 PO (10:47)
[2017-09-04 11:00] VITALS: BP 109/52
[2017-09-04] MEDS ORDERED: FAMO20TA5 PO (11:00)
[2017-09-04] MEDS ORDERED: TRAM50TA PO (11:01)
--- NOTE | 2017-09-04 13:23 | PDOC3 ---
Discharge Summary [facility] Date of Admission: Sep 03, 2017 Discharge Date: Sep 04, 2017 Admitting Diagnosis lower abd pain with gastroenteritis likely chronic RUQ pain h/o multiple abd sx status post fundoplication, cholecystectomy and TVH with right oophorectomy. 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 Rooney is a 52 old F, with chronic Rt abd pain, chronic diarrhea for years , multiple abd sx, came for lower abd pain, with N/V , some diarrhea. improved with supportive care. CT showed non specific enteritis. stool cx pending. dc home with cipro, flagyl. dc tiem 35min General: Alert, Oriented X3, Cooperative, No acute distress Heart: Regular rate, Normal S1, Normal S2 Lungs: Clear Abdomen: Normal bowel sounds, Soft, Other (min TTP RLQ, lower middle abd mild tenderness) Extremities: No clubbing, No cyanosis Skin: No rashes, No breakdown Problems: Disposition home CONDITION AT DISCHARGE: Improved Diet gi soft Scheduled Ciprofloxacin Hcl (Cipro), 500 MG PO BID Diazepam (Diazepam), 5 MG PO TID, (Reported) Famotidine (Famotidine), 20 MG PO QHS Metronidazole (Flagyl), 500 MG PO BID Warfarin Sodium (Warfarin Sodium), 10 MG PO DAILY, (Reported) Scheduled PRN Tramadol Hcl (Tramadol Hcl), 50 MG PO PRN Q6HRS PRN for PAIN Follow Up pcp in 2 weeks HOSSEIN TALAVERA MD Sep 04, 2017 13:23
[2017-09-04] MEDS ORDERED: FAMOTIDINE 20 MG TABLET. PO SCH (21:00)
== END 2017-09-04 11:57 | disposition home or self-care (01) | DRG 392 ==
LOC: ER 12:02 → 5 NORTH 15:48
PROVIDERS: ADMIT Internal Medicine Hematology & Oncology; ATTEND Internal Medicine Hematology & Oncology
DX: K52.9 Noninfective gastroenteritis and colitis, unspecified (principal); E44.1 Mild protein-calorie malnutrition; K57.92 Diverticulitis of intestine, part unspecified, without perforation or abscess without bleeding; E66.01 Morbid (severe) obesity due to excess calories; E78.00 Pure hypercholesterolemia, unspecified; E78.5 Hyperlipidemia, unspecified; F17.210 Nicotine dependence, cigarettes, uncomplicated; F32.9 Major depressive disorder, single episode, unspecified; F41.9 Anxiety disorder, unspecified; I10 Essential (primary) hypertension; K21.9 Gastro-esophageal reflux disease without esophagitis; K57.90 Diverticulosis of intestine, part unspecified, without perforation or abscess without bleeding; Z79.01 Long term (current) use of anticoagulants; Z82.3 Family history of stroke; Z83.71 Family history of colonic polyps; Z90.49 Acquired absence of other specified parts of digestive tract; Z90.710 Acquired absence of both cervix and uterus; Z68.39 Body mass index [BMI] 39.0-39.9, adult; Z90.721 Acquired absence of ovaries, unilateral; Z79.899 Other long term (current) drug therapy
CPT/HCPCS: 36415; 74177; 80048; 80053; 81001; 83690; 85025; 85610; 87045; 87324; 93005; 96361; 96374; 96375; 96376; C9113; J1170; J2270; J2405; J7030; Q9967; 99285-25

== ENCOUNTER 2017-11-09 16:08 | Emergency (ER) | payer MEDICARE, OTHER ==
[2017-11-09 16:49] LABS: INR 1.4 (0.8-1.1); PROTHROMBIN TIME PATIENT 16.2 SEC (11.7-14.0)
[2017-11-09] MEDS: ACETAMINOPHEN 500 MG TABLET PO (16:58)
== END 2017-11-09 17:30 | disposition home or self-care (01) ==
LOC: ER 16:08
DX: G44.309 Post-traumatic headache, unspecified, not intractable (principal); K21.9 Gastro-esophageal reflux disease without esophagitis; E78.00 Pure hypercholesterolemia, unspecified; Z79.01 Long term (current) use of anticoagulants; X58.XXXA Exposure to other specified factors, initial encounter; Y93.89 Activity, other specified; Y99.8 Other external cause status; Y92.89 Other specified places as the place of occurrence of the external cause
CPT/HCPCS: 36415; 70450; 85610; 99285-25

== ENCOUNTER 2018-03-29 13:17 | Emergency (ER) | payer MEDICARE, OTHER | END 2018-03-29 14:44 | disposition home or self-care (01) | LOC: ER 13:17 | DX: S06.0X0A Concussion without loss of consciousness, initial encounter (principal); J01.90 Acute sinusitis, unspecified; E78.00 Pure hypercholesterolemia, unspecified; W01.0XXA Fall on same level from slipping, tripping and stumbling without subsequent striking against object, initial encounter; Y93.89 Activity, other specified; Y99.8 Other external cause status; Y92.89 Other specified places as the place of occurrence of the external cause | CPT/HCPCS: 70450; 70486; 99284-25 ==